=== PATIENT | female | born 1995 | race Caucasian/White ===

== ENCOUNTER 2022-08-27 22:20 | Inpatient (IN) | payer MEDICAID, OTHER ==
[~2022-08-27] VITALS: Ht 154.9 cm; Wt 99.9 kg
[2022-08-27 23:14] LABS: BASOPHILS % (AUTO) 0.3 % (0.0-2.0); EOSINOPHILS % (AUTO) 1.9 % (1.0-6.0); HEMATOCRIT 36.2 % (36-46); HEMOGLOBIN 11.4 g/dL (12.0-16.0); LYMPHOCYTES # (AUTO) 2.8 K/uL (1.0-4.8); LYMPHOCYTES % (AUTO) 25.5 % (22.0-44.0); MEAN CORPUSCULAR HEMOGLOBIN 24.9 pg (26.0-34.0); MEAN CORPUSCULAR HGB CONC 31.6 G/dL (31.0-37.0); MEAN CORPUSCULAR VOLUME 79 fL (80-100); MONOCYTES # (AUTO) 1.2 K/uL (0.1-1.0); MONOCYTES % (AUTO) 10.8 % (2.0-9.0); NEUTROPHILS # (AUTO) 6.6 K/uL (1.8-7.7); NEUTROPHILS % (AUTO) 61.5 % (40.0-70.0); PLATELET COUNT (AUTO) 336 K/uL (150-450); RED BLOOD CELL COUNT(AUTO) 4.59 MIL/uL (4.00-5.20)
[2022-08-27 23:23] LABS: ANION GAP 9 mmol/L (8-16); CALCIUM, TOTAL 9.1 mg/dL (8.8-10.5); CARBON DIOXIDE 27 mmol/L (22-29); CHLORIDE 104 mmol/L (98-107); CREATININE 0.68 mg/dL (0.60-1.30); GLOMERULAR FILTR. RATE CALC > 60 mL/min (>60); GLUCOSE,RANDOM 121 mg/dL (70-110); POTASSIUM 3.6 mmol/L (3.5-5.1); SODIUM SERUM 140 mmol/L (136-145); UREA NITROGEN, BLOOD 7 mg/dL (7-18)
[2022-08-27 23:28] LABS: ALANINE AMINOTRANSFERASE 45 U/L (12-78); ALBUMIN 3.6 g/dL (3.4-5.0); ALKALINE PHOSPHATASE 91 U/L (46-116); ASPARTATE AMINOTRANSFERASE 32 U/L (15-37); BILIRUBIN,TOTAL 0.1 mg/dL (0.1-1.0); TOTAL PROTEIN, SERUM 8.1 g/dL (6.4-8.2)
[2022-08-27 23:30] LABS: COVID AG,FIA SOURCE NASAL SWAB
[2022-08-28 00:55] LABS: HCG,QUANTITATIVE < 1 mIU/mL (0-6)
[2022-08-28] MEDS ORDERED: ZOLPIDEM TARTRATE 10 MG TABLET PO PRN (06:15)
[2022-08-28 07:07] VITALS: BP 108/60
[2022-08-28] MEDS ORDERED: LOPERAMIDE HCL 2 MG CAPSULE PO PRN (08:15)
[2022-08-28] MEDS ORDERED: ONDANSETRON HCL 4 MG TABLET PO PRN (08:15)
[2022-08-28] MEDS ORDERED: ALBUTEROL SULFATE HFA 90 MCG/PUFF 8 GM INHALER IH PRN (08:15)
[2022-08-28] MEDS ORDERED: IBUPROFEN 400 MG TABLET PO PRN (08:15)
[2022-08-28] MEDS ORDERED: CloNIDine HCL 0.1 MG TABLET PO PRN (08:15)
[2022-08-28] MEDS ORDERED: GuaiFENesin/D-METHORPHAN [SUGAR-FREE] 200-20MG/10 ML SYRUP UDCUP PO PRN (08:15)
[2022-08-28] MEDS ORDERED: MAGNESIUM HYDROXIDE SUSPENSION 30 ML UDCUP PO PRN (08:15)
[2022-08-28] MEDS ORDERED: PETROLATUM,WHITE 28 GM JELLY TP PRN (08:15)
[2022-08-28] MEDS ORDERED: DOCUSATE SODIUM 100 MG CAPSULE PO PRN (08:15)
[2022-08-28] MEDS ORDERED: MAG HYDROX/AL HYDROX/SIMETH ES 30 ML SUSPENSION UDCUP PO PRN (08:15)
[2022-08-28] MEDS ORDERED: ACETAMINOPHEN 325 MG TABLET PO PRN (08:15)
[2022-08-28 08:30] VITALS: BP 112/60
[2022-08-28] MEDS: BACITRACIN 28 GM OINTMENT TP SCH ×2 (09:20→17:07)
[2022-08-28] MEDS: FLUoxetine HCL 20 MG CAPSULE PO SCH (14:09)
[2022-08-28 20:03] VITALS: BP 119/60
[2022-08-28] MEDS: OLANZapine 10 MG TABLET PO SCH (20:36)
[2022-08-29 08:00] VITALS: BP 113/60
[2022-08-29 08:28] LABS: CHOL/HDL RATIO 5.6 (3.9-5.7); FREE T4 (FREE THYROXINE) 0.59 ng/dL (0.76-1.46); THYROID STIMULATING HORMONE 1.82 uIU/mL (0.36-3.74)
[2022-08-29] MEDS: FLUoxetine HCL 20 MG CAPSULE PO SCH (08:50)
[2022-08-29] MEDS: BACITRACIN 28 GM OINTMENT TP SCH ×2 (08:50→16:38)
[2022-08-29] MEDS: OLANZapine 10 MG TABLET PO SCH (08:50)
[2022-08-29] MEDS ORDERED: PALIPERIDONE PALMITATE 234 MG/1.5 ML SYRINGE IM ONE (10:00)
[2022-08-29] MEDS: CloZAPine 25 MG TABLET PO SCH (10:18)
[2022-08-29] MEDS: DIVALPROEX SODIUM 500 MG DR TABLET PO SCH ×2 (10:18→16:38)
[2022-08-29] MEDS: SERTRALINE HCL 100 MG TABLET PO SCH ×2 (10:18→16:38)
[2022-08-29] MEDS: HALOPERIDOL 5 MG TABLET PO PRN (12:56)
[2022-08-29] MEDS: LORazepam 2 MG TABLET PO PRN ×2 (12:56→19:46)
[2022-08-29 20:07] VITALS: BP 116/73
[2022-08-29] MEDS: LITHIUM CARBONATE 600 MG CAPSULE PO SCH (20:36)
[2022-08-29] MEDS: CloZAPine 100 MG TABLET PO SCH (20:36)
[2022-08-30] MEDS: SERTRALINE HCL 100 MG TABLET PO SCH ×2 (08:42→16:40)
[2022-08-30] MEDS: BACITRACIN 28 GM OINTMENT TP SCH ×2 (08:42→16:41)
[2022-08-30] MEDS: FLUoxetine HCL 20 MG CAPSULE PO SCH (08:42)
[2022-08-30] MEDS: DIVALPROEX SODIUM 500 MG DR TABLET PO SCH ×2 (08:42→16:40)
[2022-08-30] MEDS: CloZAPine 25 MG TABLET PO SCH (08:42)
[2022-08-30] MEDS: CloZAPine 100 MG TABLET PO SCH (21:00)
[2022-08-30] MEDS: LITHIUM CARBONATE 600 MG CAPSULE PO SCH (21:00)
[2022-08-31 08:21] VITALS: BP 109/61
[2022-08-31] MEDS: CloZAPine 25 MG TABLET PO SCH (08:31)
[2022-08-31] MEDS: SERTRALINE HCL 100 MG TABLET PO SCH ×2 (08:32→16:39)
[2022-08-31] MEDS: DIVALPROEX SODIUM 500 MG DR TABLET PO SCH ×2 (08:32→16:39)
[2022-08-31] MEDS: FLUoxetine HCL 20 MG CAPSULE PO SCH (08:32)
[2022-08-31] MEDS: BACITRACIN 28 GM OINTMENT TP SCH ×2 (08:42→16:39)
[2022-08-31] MEDS: LORazepam 2 MG TABLET PO PRN (15:50)
[2022-08-31] MEDS: HALOPERIDOL 5 MG TABLET PO PRN (15:50)
[2022-08-31 20:03] VITALS: BP 110/60
[2022-08-31] MEDS: LITHIUM CARBONATE 600 MG CAPSULE PO SCH (20:07)
[2022-08-31] MEDS: CloZAPine 100 MG TABLET PO SCH (20:07)
[2022-09-01 08:19] VITALS: BP 119/76
[2022-09-01] MEDS: DIVALPROEX SODIUM 500 MG DR TABLET PO SCH ×2 (08:22→16:15)
[2022-09-01] MEDS: CloZAPine 25 MG TABLET PO SCH (08:22)
[2022-09-01] MEDS: SERTRALINE HCL 100 MG TABLET PO SCH ×2 (08:22→16:15)
[2022-09-01] MEDS: BACITRACIN 28 GM OINTMENT TP SCH ×2 (08:22→16:15)
[2022-09-01] MEDS: FLUoxetine HCL 20 MG CAPSULE PO SCH (08:22)
[2022-09-01] MEDS: LORazepam 2 MG TABLET PO PRN (16:15)
[2022-09-01 20:12] VITALS: BP 129/88
[2022-09-01] MEDS: LITHIUM CARBONATE 600 MG CAPSULE PO SCH (20:14)
[2022-09-01] MEDS: CloZAPine 100 MG TABLET PO SCH (20:14)
[2022-09-02] MEDS: BACITRACIN 28 GM OINTMENT TP SCH ×2 (08:19→17:23)
[2022-09-02] MEDS: SERTRALINE HCL 100 MG TABLET PO SCH ×2 (08:19→17:23)
[2022-09-02] MEDS: DIVALPROEX SODIUM 500 MG DR TABLET PO SCH ×2 (08:19→17:23)
[2022-09-02] MEDS: CloZAPine 25 MG TABLET PO SCH (08:19)
[2022-09-02] MEDS: FLUoxetine HCL 20 MG CAPSULE PO SCH (08:19)
[2022-09-02 08:27] VITALS: BP 129/86
[2022-09-02 09:46] LABS: GLUCOMETER DEV NAME(LOC) POC.BV
[2022-09-02 20:11] VITALS: BP 117/68
[2022-09-02] MEDS: CloZAPine 100 MG TABLET PO SCH (20:21)
[2022-09-02] MEDS: LITHIUM CARBONATE 600 MG CAPSULE PO SCH (20:21)
[2022-09-03 08:18] VITALS: BP 118/83
[2022-09-03] MEDS: BACITRACIN 28 GM OINTMENT TP SCH ×2 (08:27→16:46)
[2022-09-03] MEDS: CloZAPine 25 MG TABLET PO SCH (08:27)
[2022-09-03] MEDS: FLUoxetine HCL 20 MG CAPSULE PO SCH (08:27)
[2022-09-03] MEDS: SERTRALINE HCL 100 MG TABLET PO SCH ×2 (08:27→16:45)
[2022-09-03] MEDS: DIVALPROEX SODIUM 500 MG DR TABLET PO SCH ×2 (08:27→16:45)
[2022-09-03] MEDS: LORazepam 2 MG TABLET PO PRN ×2 (13:18→19:29)
[2022-09-03] MEDS: HALOPERIDOL 5 MG TABLET PO PRN (19:29)
[2022-09-03 20:07] VITALS: BP 115/71
[2022-09-03] MEDS: LITHIUM CARBONATE 600 MG CAPSULE PO SCH (20:39)
[2022-09-03] MEDS: CloZAPine 100 MG TABLET PO SCH (20:39)
[2022-09-04 07:38] LABS: BASOPHILS % (AUTO) 0.4 % (0.0-2.0); EOSINOPHILS % (AUTO) 2.9 % (1.0-6.0); HEMATOCRIT 36.2 % (36-46); HEMOGLOBIN 11.5 g/dL (12.0-16.0); LYMPHOCYTES # (AUTO) 2.6 K/uL (1.0-4.8); LYMPHOCYTES % (AUTO) 28.3 % (22.0-44.0); MEAN CORPUSCULAR HEMOGLOBIN 24.9 pg (26.0-34.0); MEAN CORPUSCULAR HGB CONC 31.8 G/dL (31.0-37.0); MEAN CORPUSCULAR VOLUME 78 fL (80-100); MONOCYTES # (AUTO) 0.8 K/uL (0.1-1.0); MONOCYTES % (AUTO) 8.7 % (2.0-9.0); NEUTROPHILS # (AUTO) 5.5 K/uL (1.8-7.7); NEUTROPHILS % (AUTO) 59.7 % (40.0-70.0); PLATELET COUNT (AUTO) 300 K/uL (150-450); RED BLOOD CELL COUNT(AUTO) 4.62 MIL/uL (4.00-5.20); RED CELL DISTRIBUTION WIDTH 16.1 % (11.5-14.5)
[2022-09-04 08:11] VITALS: BP 130/73
[2022-09-04] MEDS: BACITRACIN 28 GM OINTMENT TP SCH ×2 (08:41→16:50)
[2022-09-04] MEDS: FLUoxetine HCL 20 MG CAPSULE PO SCH (08:42)
[2022-09-04] MEDS: SERTRALINE HCL 100 MG TABLET PO SCH ×2 (08:42→16:50)
[2022-09-04] MEDS: DIVALPROEX SODIUM 500 MG DR TABLET PO SCH ×2 (08:42→16:50)
[2022-09-04] MEDS: CloZAPine 25 MG TABLET PO SCH (08:43)
[2022-09-04 20:03] VITALS: BP 115/68
[2022-09-04] MEDS: CloZAPine 100 MG TABLET PO SCH (20:08)
[2022-09-04] MEDS: LITHIUM CARBONATE 600 MG CAPSULE PO SCH (20:08)
[2022-09-05 08:27] VITALS: BP 129/76
[2022-09-05] MEDS: SERTRALINE HCL 100 MG TABLET PO SCH ×2 (08:27→16:48)
[2022-09-05] MEDS: FLUoxetine HCL 20 MG CAPSULE PO SCH (08:27)
[2022-09-05] MEDS: CloZAPine 25 MG TABLET PO SCH (08:27)
[2022-09-05] MEDS: BACITRACIN 28 GM OINTMENT TP SCH ×2 (08:28→16:51)
[2022-09-05] MEDS: DIVALPROEX SODIUM 500 MG DR TABLET PO SCH ×2 (09:32→16:40)
[2022-09-05] MEDS: LORazepam 2 MG TABLET PO PRN (16:55)
[2022-09-05] MEDS: CloZAPine 100 MG TABLET PO SCH (20:01)
[2022-09-05] MEDS: LITHIUM CARBONATE 600 MG CAPSULE PO SCH (20:06)
[2022-09-05 20:15] VITALS: BP 127/77
[2022-09-06] MEDS: DIVALPROEX SODIUM 500 MG DR TABLET PO SCH ×2 (08:25→16:42)
[2022-09-06] MEDS: FLUoxetine HCL 20 MG CAPSULE PO SCH (08:26)
[2022-09-06] MEDS: CloZAPine 25 MG TABLET PO SCH (08:26)
[2022-09-06] MEDS: BACITRACIN 28 GM OINTMENT TP SCH ×2 (08:48→16:42)
[2022-09-06] MEDS: SERTRALINE HCL 100 MG TABLET PO SCH ×2 (09:15→16:42)
[2022-09-06 09:26] VITALS: BP 106/67
[2022-09-06] MEDS: LORazepam 2 MG TABLET PO PRN (14:42)
[2022-09-06] MEDS: HALOPERIDOL 5 MG TABLET PO PRN (14:42)
[2022-09-06 20:03] VITALS: BP 112/63
[2022-09-06] MEDS: LITHIUM CARBONATE 600 MG CAPSULE PO SCH (20:20)
[2022-09-06] MEDS: CloZAPine 100 MG TABLET PO SCH (20:20)
[2022-09-07] MEDS: CloZAPine 25 MG TABLET PO SCH (08:42)
[2022-09-07] MEDS: SERTRALINE HCL 100 MG TABLET PO SCH ×2 (08:42→16:24)
[2022-09-07] MEDS: DIVALPROEX SODIUM 500 MG DR TABLET PO SCH ×2 (08:43→16:20)
[2022-09-07] MEDS: FLUoxetine HCL 20 MG CAPSULE PO SCH (08:43)
[2022-09-07 20:00] VITALS: BP 122/84
[2022-09-07] MEDS: LITHIUM CARBONATE 600 MG CAPSULE PO SCH (20:22)
[2022-09-07] MEDS: CloZAPine 100 MG TABLET PO SCH (20:23)
[2022-09-08] MEDS: DIVALPROEX SODIUM 500 MG DR TABLET PO SCH ×2 (08:44→16:02)
[2022-09-08] MEDS: CloZAPine 25 MG TABLET PO SCH (08:45)
[2022-09-08] MEDS: SERTRALINE HCL 100 MG TABLET PO SCH ×2 (08:45→16:02)
[2022-09-08] MEDS: FLUoxetine HCL 20 MG CAPSULE PO SCH (08:45)
[2022-09-08] MEDS: CloZAPine 100 MG TABLET PO SCH (20:18)
[2022-09-08] MEDS: LITHIUM CARBONATE 600 MG CAPSULE PO SCH (20:18)
[2022-09-09 08:39] VITALS: BP 106/64
[2022-09-09] MEDS: CloZAPine 25 MG TABLET PO SCH (08:40)
[2022-09-09] MEDS: DIVALPROEX SODIUM 500 MG DR TABLET PO SCH (08:40)
[2022-09-09] MEDS: FLUoxetine HCL 20 MG CAPSULE PO SCH (08:40)
[2022-09-09] MEDS: SERTRALINE HCL 100 MG TABLET PO SCH (08:41)
[2022-09-09 08:46] LABS: GLUCOMETER DEV NAME(LOC) POC.BV
[2022-09-09] MEDS ORDERED: DIVA-112 PO (12:46)
[2022-09-09] MEDS ORDERED: LITH600C5 PO (12:47)
[2022-09-09] MEDS ORDERED: CLOZ100T68 PO (12:47)
[2022-09-09] MEDS ORDERED: SERT-162 PO (12:47)
[2022-09-09] MEDS ORDERED: CLOZ25TA55 PO (12:47)
[2022-09-09] MEDS ORDERED: FLUO20CA36 PO (12:48)
[2022-09-26] MEDS ORDERED: PALIPERIDONE PALMITATE 234 MG/1.5 ML SYRINGE IM SCH (09:00)
== END 2022-09-09 13:32 | disposition home or self-care (01) | DRG 750 ==
LOC: EMS 22:26 → B3A 08-28 03:00
PROVIDERS: ADMIT Psychiatry & Neurology Child & Adolescent Psychiatry; ATTEND Psychiatry & Neurology Child & Adolescent Psychiatry
DX: F25.1 Schizoaffective disorder, depressive type (principal); R45.851 Suicidal ideations; E11.9 Type 2 diabetes mellitus without complications; F32.A Depression, unspecified; E66.01 Morbid (severe) obesity due to excess calories; D64.9 Anemia, unspecified; F25.9 Schizoaffective disorder, unspecified; K21.9 Gastro-esophageal reflux disease without esophagitis; F79 Unspecified intellectual disabilities; Z20.822 Contact with and (suspected) exposure to COVID-19; Z68.41 Body mass index [BMI] 40.0-44.9, adult
CPT/HCPCS: 80053; 80061; 80164; 80178; 83036; 84439; 84443; 84702; 85025; 99285; G0480

== ENCOUNTER 2023-01-16 22:30 | Inpatient (IN) | payer MEDICAID ==
[~2023-01-16] VITALS: Ht 175.3 cm; Wt 107.5 kg
[~2023-01-16 22:30] MED LIST: CLOZ100T68 PO; CLOZ25TA52 PO; DIVA-112 PO; FLUO20CA36 PO; LITH600C5 PO; SERT-162 PO
[2023-01-17 00:19] LABS: COVID AG,FIA SOURCE NASOPHARYNGEAL
[2023-01-17 00:21] LABS: BASOPHILS % (AUTO) 0.3 % (0.0-2.0); HEMATOCRIT 33.7 % (36-46); HEMOGLOBIN 10.7 g/dL (12.0-16.0); LYMPHOCYTES # (AUTO) 2.6 K/uL (1.0-4.8); LYMPHOCYTES % (AUTO) 30.7 % (22.0-44.0); MEAN CORPUSCULAR HGB CONC 31.7 G/dL (31.0-37.0); MEAN CORPUSCULAR VOLUME 79 fL (80-100); MONOCYTES # (AUTO) 0.8 K/uL (0.1-1.0); MONOCYTES % (AUTO) 9.4 % (2.0-9.0); NEUTROPHILS # (AUTO) 4.8 K/uL (1.8-7.7); NEUTROPHILS % (AUTO) 56.6 % (40.0-70.0); PLATELET COUNT (AUTO) 245 K/uL (150-450); RED BLOOD CELL COUNT(AUTO) 4.26 MIL/uL (4.00-5.20); RED CELL DISTRIBUTION WIDTH 17.7 % (11.5-14.5); WHITE BLOOD COUNT (AUTO) 8.5 K/uL (4.5-11.0)
[2023-01-17 00:37] LABS: ANION GAP 9 mmol/L (8-16); CALCIUM, TOTAL 8.8 mg/dL (8.8-10.5); CARBON DIOXIDE 25 mmol/L (22-29); CHLORIDE 103 mmol/L (98-107); CREATININE 0.63 mg/dL (0.60-1.30); GLOMERULAR FILTR. RATE CALC > 60 mL/min (>60); GLUCOSE,RANDOM 97 mg/dL (70-110); POTASSIUM 3.6 mmol/L (3.5-5.1); SODIUM SERUM 137 mmol/L (136-145); UREA NITROGEN, BLOOD 5 mg/dL (7-18)
[2023-01-17 00:38] LABS: LITHIUM 0.72 mmol/L (0.60-1.20)
[2023-01-17 00:43] LABS: ALANINE AMINOTRANSFERASE 51 U/L (12-78); ALBUMIN 3.2 g/dL (3.4-5.0); ALKALINE PHOSPHATASE 92 U/L (46-116); ASPARTATE AMINOTRANSFERASE 66 U/L (15-37); BILIRUBIN,TOTAL 0.2 mg/dL (0.1-1.0); TOTAL PROTEIN, SERUM 7.6 g/dL (6.4-8.2)
[2023-01-17 00:44] LABS: VALPROIC ACID 79 mcg/mL (50-100)
[2023-01-17 00:45] LABS: ALCOHOL, BLOOD (SERUM) < 3 mg/dL (0-10)
[2023-01-17 01:03] LABS: SARS-COV2 (COVID) ANTIGEN,FIA Negative (Negative)
[2023-01-17] MEDS ORDERED: ZOLPIDEM TARTRATE 10 MG TABLET PO PRN (01:45)
[2023-01-17 10:45] LABS: GLUCOMETER DEV NAME(LOC) ER.6; GLUCOSE,POINT OF CARE 81 MG/DL (70-110)
[2023-01-17] MEDS: HALOPERIDOL 5 MG TABLET PO PRN (12:06)
[2023-01-17] MEDS: LORazepam 2 MG TABLET PO PRN (12:06)
[2023-01-17 13:02] VITALS: BP 126/75; PULSE 83; RESP 18; TEMP 98.1; O2SAT 97
[2023-01-17] MEDS ORDERED: PNEUMOCOCCAL VACCINE POLYVALENT 0.5 ML SYRINGE [PPSV23] IM. ONE (13:15)
[2023-01-17] MEDS ORDERED: CloNIDine HCL 0.1 MG TABLET PO PRN (13:45)
[2023-01-17] MEDS ORDERED: NICOTINE 14 MG/24 HOUR PATCH TD PRN (13:45)
[2023-01-17] MEDS ORDERED: LOPERAMIDE HCL 2 MG CAPSULE PO PRN (13:45)
[2023-01-17] MEDS ORDERED: ALBUTEROL SULFATE HFA 90 MCG/PUFF 8 GM INHALER IH PRN (13:45)
[2023-01-17] MEDS ORDERED: GuaiFENesin/D-METHORPHAN [SUGAR-FREE] 200-20MG/10 ML SYRUP UDCUP PO PRN (13:45)
[2023-01-17] MEDS ORDERED: MAG HYDROX/AL HYDROX/SIMETH ES 30 ML SUSPENSION UDCUP PO PRN (13:45)
[2023-01-17] MEDS ORDERED: MAGNESIUM HYDROXIDE SUSPENSION 30 ML UDCUP PO PRN (13:45)
[2023-01-17] MEDS ORDERED: DOCUSATE SODIUM 100 MG CAPSULE PO PRN (13:45)
[2023-01-17] MEDS ORDERED: ONDANSETRON HCL 4 MG TABLET PO PRN (13:45)
[2023-01-17] MEDS ORDERED: PETROLATUM,WHITE 28 GM JELLY TP PRN (13:45)
[2023-01-17 20:08] VITALS: BP 110/60; PULSE 91; RESP 19; TEMP 97.7; O2SAT 94
[2023-01-17] MEDS: CloZAPine 25 MG TABLET PO SCH (21:00)
[2023-01-17] MEDS: BENZTROPINE MESYLATE 2 MG TABLET PO SCH (21:00)
[2023-01-17] MEDS: ESCITALOPRAM OXALATE 10 MG TABLET PO SCH ×2 (21:00→21:04)
[2023-01-17] MEDS: LURASIDONE HCL 80 MG TABLET PO SCH ×2 (21:00→21:04)
[2023-01-17] MEDS: DIVALPROEX SODIUM 500 MG ER TABLET PO SCH (21:00)
[2023-01-17] MEDS: CloZAPine 100 MG TABLET PO SCH (21:00)
[2023-01-17] MEDS: LITHIUM CARBONATE 600 MG CAPSULE PO SCH (21:00)
[2023-01-17] MEDS: LamoTRIgine 100 MG TABLET PO SCH (21:00)
[2023-01-18] MEDS: LamoTRIgine 100 MG TABLET PO SCH ×2 (08:00→20:45)
[2023-01-18] MEDS: CloZAPine 25 MG TABLET PO SCH ×2 (08:00→20:45)
[2023-01-18 08:50] LABS: BASOPHILS % (AUTO) 0.3 % (0.0-2.0); EOSINOPHILS % (AUTO) 3.4 % (1.0-6.0); HEMATOCRIT 36.9 % (36-46); HEMOGLOBIN 11.5 g/dL (12.0-16.0); LYMPHOCYTES % (AUTO) 29.6 % (22.0-44.0); MEAN CORPUSCULAR HEMOGLOBIN 24.7 pg (26.0-34.0); MEAN CORPUSCULAR HGB CONC 31.2 G/dL (31.0-37.0); MEAN CORPUSCULAR VOLUME 79 fL (80-100); MONOCYTES # (AUTO) 0.3 K/uL (0.1-1.0); MONOCYTES % (AUTO) 4.1 % (2.0-9.0); NEUTROPHILS # (AUTO) 4.3 K/uL (1.8-7.7); NEUTROPHILS % (AUTO) 62.6 % (40.0-70.0); PLATELET COUNT (AUTO) 273 K/uL (150-450); RED BLOOD CELL COUNT(AUTO) 4.65 MIL/uL (4.00-5.20); RED CELL DISTRIBUTION WIDTH 17.6 % (11.5-14.5); WHITE BLOOD COUNT (AUTO) 6.8 K/uL (4.5-11.0)
[2023-01-18 09:00] VITALS: BP 114/66; PULSE 96; RESP 16; TEMP 97.5; O2SAT 96
[2023-01-18 09:03] LABS: HEMOGLOBIN A1C 5.9 % (3.8-5.6)
[2023-01-18 09:27] LABS: CHOL/HDL RATIO 6.5 (3.9-5.7); THYROID STIMULATING HORMONE 5.98 uIU/mL (0.36-3.74)
[2023-01-18] MEDS: HALOPERIDOL 5 MG TABLET PO PRN (16:14)
[2023-01-18] MEDS: LORazepam 2 MG TABLET PO PRN (16:14)
[2023-01-18] MEDS: DIVALPROEX SODIUM 500 MG ER TABLET PO SCH (20:45)
[2023-01-18] MEDS: LURASIDONE HCL 80 MG TABLET PO SCH (20:45)
[2023-01-18] MEDS: ESCITALOPRAM OXALATE 10 MG TABLET PO SCH (20:45)
[2023-01-18] MEDS: CloZAPine 100 MG TABLET PO SCH (20:45)
[2023-01-18] MEDS: LITHIUM CARBONATE 600 MG CAPSULE PO SCH (20:45)
[2023-01-18] MEDS: BENZTROPINE MESYLATE 2 MG TABLET PO SCH (21:06)
[2023-01-18 21:11] VITALS: BP 120/82; PULSE 98; RESP 18; TEMP 97.6; O2SAT 94
[2023-01-19 08:10] VITALS: BP 106/60; PULSE 85; RESP 18; RESP 20; TEMP 94; TEMP 98; O2SAT 94; O2SAT 97
[2023-01-19] MEDS: LamoTRIgine 100 MG TABLET PO SCH ×2 (08:12→20:11)
[2023-01-19] MEDS: LORazepam 2 MG TABLET PO PRN (08:12)
[2023-01-19] MEDS: CloZAPine 25 MG TABLET PO SCH ×2 (08:12→20:10)
[2023-01-19] MEDS: HALOPERIDOL 5 MG TABLET PO PRN (08:12)
[2023-01-19] MEDS: LURASIDONE HCL 80 MG TABLET PO SCH (20:10)
[2023-01-19] MEDS: LITHIUM CARBONATE 600 MG CAPSULE PO SCH (20:10)
[2023-01-19] MEDS: CloZAPine 100 MG TABLET PO SCH (20:10)
[2023-01-19] MEDS: ESCITALOPRAM OXALATE 10 MG TABLET PO SCH (20:10)
[2023-01-19] MEDS: DIVALPROEX SODIUM 500 MG ER TABLET PO SCH (20:10)
[2023-01-19] MEDS: BENZTROPINE MESYLATE 2 MG TABLET PO SCH (21:18)
[2023-01-19 21:34] VITALS: RESP 17
[2023-01-20 08:17] VITALS: BP 129/83; PULSE 84; RESP 18; TEMP 98.6; O2SAT 97
[2023-01-20] MEDS: CloZAPine 25 MG TABLET PO SCH ×2 (09:03→20:03)
[2023-01-20] MEDS: LamoTRIgine 100 MG TABLET PO SCH ×2 (09:03→20:04)
[2023-01-20] MEDS: LORazepam 2 MG TABLET PO PRN (09:04)
[2023-01-20] MEDS: CloZAPine 100 MG TABLET PO SCH (20:04)
[2023-01-20] MEDS: BENZTROPINE MESYLATE 2 MG TABLET PO SCH (20:04)
[2023-01-20] MEDS: ESCITALOPRAM OXALATE 10 MG TABLET PO SCH (20:04)
[2023-01-20] MEDS: LURASIDONE HCL 80 MG TABLET PO SCH (20:04)
[2023-01-20] MEDS: LITHIUM CARBONATE 600 MG CAPSULE PO SCH (20:04)
[2023-01-20] MEDS: DIVALPROEX SODIUM 500 MG ER TABLET PO SCH (20:04)
[2023-01-20 20:32] VITALS: RESP 19; TEMP 98
[2023-01-21 08:06] VITALS: BP 107/67; PULSE 100; RESP 16; TEMP 97.1; O2SAT 98
[2023-01-21] MEDS: LamoTRIgine 100 MG TABLET PO SCH ×2 (09:02→20:21)
[2023-01-21] MEDS: CloZAPine 25 MG TABLET PO SCH ×2 (09:02→20:20)
[2023-01-21] MEDS: ACETAMINOPHEN 325 MG TABLET PO PRN (18:14)
[2023-01-21] MEDS: LORazepam 2 MG TABLET PO PRN (18:14)
[2023-01-21] MEDS: HALOPERIDOL 5 MG TABLET PO PRN (18:14)
[2023-01-21 20:00] VITALS: BP 113/72; PULSE 100; RESP 18; TEMP 98; O2SAT 97
[2023-01-21] MEDS: ESCITALOPRAM OXALATE 10 MG TABLET PO SCH (20:21)
[2023-01-21] MEDS: DIVALPROEX SODIUM 500 MG ER TABLET PO SCH (20:21)
[2023-01-21] MEDS: CloZAPine 100 MG TABLET PO SCH (20:21)
[2023-01-21] MEDS: LURASIDONE HCL 80 MG TABLET PO SCH (20:21)
[2023-01-21] MEDS: LITHIUM CARBONATE 600 MG CAPSULE PO SCH (20:21)
[2023-01-21] MEDS: BENZTROPINE MESYLATE 2 MG TABLET PO SCH (20:22)
[2023-01-21] MEDS: IBUPROFEN 400 MG TABLET PO PRN (21:23)
[2023-01-21] MEDS: BENZOCAINE 10% 7 GM GEL TP PRN (21:23)
[2023-01-22 08:10] VITALS: RESP 18
[2023-01-22] MEDS: HALOPERIDOL 5 MG TABLET PO PRN (08:31)
[2023-01-22] MEDS: LamoTRIgine 100 MG TABLET PO SCH ×2 (08:32→20:14)
[2023-01-22] MEDS: LORazepam 2 MG TABLET PO PRN ×2 (08:32→20:14)
[2023-01-22] MEDS: CloZAPine 25 MG TABLET PO SCH ×2 (08:32→20:14)
[2023-01-22] MEDS: LURASIDONE HCL 40 MG TABLET PO SCH (17:09)
[2023-01-22] MEDS: BENZOCAINE 10% 7 GM GEL TP PRN (17:15)
[2023-01-22] MEDS: ACETAMINOPHEN 325 MG TABLET PO PRN (17:15)
[2023-01-22 18:47] VITALS: RESP 18
[2023-01-22] MEDS: IBUPROFEN 400 MG TABLET PO PRN (18:47)
[2023-01-22 19:47] VITALS: RESP 17
[2023-01-22] MEDS: LITHIUM CARBONATE 600 MG CAPSULE PO SCH (20:14)
[2023-01-22] MEDS: LURASIDONE HCL 80 MG TABLET PO SCH (20:14)
[2023-01-22] MEDS: DIVALPROEX SODIUM 500 MG ER TABLET PO SCH (20:14)
[2023-01-22] MEDS: ESCITALOPRAM OXALATE 20 MG TABLET PO SCH (20:14)
[2023-01-22] MEDS: CloZAPine 100 MG TABLET PO SCH (20:14)
[2023-01-22] MEDS: BENZTROPINE MESYLATE 2 MG TABLET PO SCH (21:12)
[2023-01-22 21:45] VITALS: RESP 18; TEMP 98
[2023-01-23 07:10] VITALS: BP 131/71; PULSE 89; RESP 17; TEMP 97.2; O2SAT 98
[2023-01-23] MEDS: HALOPERIDOL 5 MG TABLET PO PRN (08:18)
[2023-01-23] MEDS: LORazepam 2 MG TABLET PO PRN (08:18)
[2023-01-23] MEDS: LamoTRIgine 100 MG TABLET PO SCH ×2 (08:19→20:27)
[2023-01-23] MEDS: CloZAPine 25 MG TABLET PO SCH ×2 (08:19→20:27)
[2023-01-23 08:42] VITALS: RESP 18
[2023-01-23] MEDS: LURASIDONE HCL 40 MG TABLET PO SCH (16:44)
[2023-01-23 20:00] VITALS: BP 125/79; PULSE 94; RESP 18; TEMP 97.8; O2SAT 96
[2023-01-23] MEDS: ESCITALOPRAM OXALATE 20 MG TABLET PO SCH (20:27)
[2023-01-23] MEDS: LITHIUM CARBONATE 600 MG CAPSULE PO SCH (20:27)
[2023-01-23] MEDS: BENZTROPINE MESYLATE 2 MG TABLET PO SCH (20:27)
[2023-01-23] MEDS: DIVALPROEX SODIUM 500 MG ER TABLET PO SCH (20:27)
[2023-01-23] MEDS: CloZAPine 100 MG TABLET PO SCH (20:28)
[2023-01-23] MEDS: LURASIDONE HCL 80 MG TABLET PO SCH (22:05)
[2023-01-24 07:21] LABS: BASOPHILS % (AUTO) 0.3 % (0.0-2.0); EOSINOPHILS % (AUTO) 3.2 % (1.0-6.0); HEMATOCRIT 36.2 % (36-46); HEMOGLOBIN 11.4 g/dL (12.0-16.0); LYMPHOCYTES # (AUTO) 2.7 K/uL (1.0-4.8); LYMPHOCYTES % (AUTO) 28.9 % (22.0-44.0); MEAN CORPUSCULAR HEMOGLOBIN 25.1 pg (26.0-34.0); MEAN CORPUSCULAR HGB CONC 31.6 G/dL (31.0-37.0); MEAN CORPUSCULAR VOLUME 79 fL (80-100); MONOCYTES # (AUTO) 0.8 K/uL (0.1-1.0); MONOCYTES % (AUTO) 8.3 % (2.0-9.0); NEUTROPHILS # (AUTO) 5.6 K/uL (1.8-7.7); NEUTROPHILS % (AUTO) 59.3 % (40.0-70.0); PLATELET COUNT (AUTO) 280 K/uL (150-450); RED BLOOD CELL COUNT(AUTO) 4.56 MIL/uL (4.00-5.20); RED CELL DISTRIBUTION WIDTH 17.8 % (11.5-14.5); WHITE BLOOD COUNT (AUTO) 9.4 K/uL (4.5-11.0)
[2023-01-24] MEDS: LamoTRIgine 100 MG TABLET PO SCH ×2 (08:14→21:36)
[2023-01-24] MEDS: CloZAPine 25 MG TABLET PO SCH ×2 (08:14→21:36)
[2023-01-24 09:00] VITALS: BP 105/60; PULSE 81; RESP 18; TEMP 98.3; O2SAT 94
[2023-01-24] MEDS: LURASIDONE HCL 40 MG TABLET PO SCH (16:22)
[2023-01-24 20:24] VITALS: BP 100/68; PULSE 100; RESP 16; TEMP 97.6; O2SAT 95
[2023-01-24] MEDS: LURASIDONE HCL 80 MG TABLET PO SCH (21:36)
[2023-01-24] MEDS: BENZTROPINE MESYLATE 2 MG TABLET PO SCH (21:36)
[2023-01-24] MEDS: CloZAPine 100 MG TABLET PO SCH (21:36)
[2023-01-24] MEDS: LITHIUM CARBONATE 600 MG CAPSULE PO SCH (21:36)
[2023-01-24] MEDS: ESCITALOPRAM OXALATE 20 MG TABLET PO SCH (21:37)
[2023-01-24] MEDS: DIVALPROEX SODIUM 500 MG ER TABLET PO SCH (21:37)
[2023-01-25 08:23] VITALS: BP 113/72; PULSE 87; RESP 18; TEMP 98; O2SAT 97
[2023-01-25] MEDS: CloZAPine 25 MG TABLET PO SCH ×2 (08:32→20:32)
[2023-01-25] MEDS: HALOPERIDOL 5 MG TABLET PO PRN (08:32)
[2023-01-25] MEDS: LORazepam 2 MG TABLET PO PRN (08:32)
[2023-01-25] MEDS: LamoTRIgine 100 MG TABLET PO SCH ×2 (08:32→20:33)
[2023-01-25] MEDS: LURASIDONE HCL 40 MG TABLET PO SCH (16:44)
[2023-01-25 20:23] VITALS: BP 107/74; PULSE 82; RESP 18; TEMP 97.8; O2SAT 97
[2023-01-25] MEDS: LITHIUM CARBONATE 600 MG CAPSULE PO SCH (20:32)
[2023-01-25] MEDS: LURASIDONE HCL 80 MG TABLET PO SCH (20:32)
[2023-01-25] MEDS: BENZTROPINE MESYLATE 2 MG TABLET PO SCH (20:32)
[2023-01-25] MEDS: CloZAPine 100 MG TABLET PO SCH (20:33)
[2023-01-25] MEDS: DIVALPROEX SODIUM 500 MG ER TABLET PO SCH (20:33)
[2023-01-25] MEDS: ESCITALOPRAM OXALATE 20 MG TABLET PO SCH (20:36)
[2023-01-26 08:45] VITALS: BP 110/69; PULSE 80; RESP 18; TEMP 97.9; O2SAT 96
[2023-01-26] MEDS: LORazepam 2 MG TABLET PO PRN (09:16)
[2023-01-26] MEDS: CloZAPine 25 MG TABLET PO SCH ×2 (09:16→20:51)
[2023-01-26] MEDS: LamoTRIgine 100 MG TABLET PO SCH ×2 (09:16→20:51)
[2023-01-26] MEDS: LURASIDONE HCL 40 MG TABLET PO SCH (16:46)
[2023-01-26 20:15] VITALS: BP 116/75; PULSE 91; RESP 18; TEMP 97.9; O2SAT 96
[2023-01-26] MEDS: ESCITALOPRAM OXALATE 20 MG TABLET PO SCH (20:51)
[2023-01-26] MEDS: LITHIUM CARBONATE 600 MG CAPSULE PO SCH (20:51)
[2023-01-26] MEDS: CloZAPine 100 MG TABLET PO SCH (20:51)
[2023-01-26] MEDS: DIVALPROEX SODIUM 500 MG ER TABLET PO SCH (20:51)
[2023-01-26] MEDS: LURASIDONE HCL 80 MG TABLET PO SCH (20:51)
[2023-01-26] MEDS: BENZTROPINE MESYLATE 2 MG TABLET PO SCH (20:51)
[2023-01-27] MEDS: CloZAPine 25 MG TABLET PO SCH (08:11)
[2023-01-27] MEDS: LamoTRIgine 100 MG TABLET PO SCH (08:11)
[2023-01-27] MEDS ORDERED: LURA40TA2 PO (10:41)
[2023-01-27] MEDS ORDERED: BENZ2TAB71 PO (10:42)
[2023-01-27] MEDS ORDERED: CLOZ100T61 PO (10:42)
[2023-01-27] MEDS ORDERED: CLOZ25TA52 PO (10:42)
[2023-01-27] MEDS ORDERED: DIVA500T53 PO (10:43)
[2023-01-27] MEDS ORDERED: LAMO-24 PO (10:44)
[2023-01-27] MEDS ORDERED: LURA80TA2 PO (10:45)
[2023-01-27] MEDS ORDERED: ESCI20TA87 PO (10:45)
== END 2023-01-27 15:00 | disposition home or self-care (01) | DRG 750 ==
LOC: EMS 22:31 → B3A 01-17 09:33
PROVIDERS: ADMIT Psychiatry & Neurology Child & Adolescent Psychiatry; ATTEND Psychiatry & Neurology Child & Adolescent Psychiatry
DX: F25.1 Schizoaffective disorder, depressive type (principal); R45.851 Suicidal ideations; E11.9 Type 2 diabetes mellitus without complications; D64.9 Anemia, unspecified; E87.6 Hypokalemia; F17.200 Nicotine dependence, unspecified, uncomplicated; Z20.822 Contact with and (suspected) exposure to COVID-19; F19.10 Other psychoactive substance abuse, uncomplicated; G43.909 Migraine, unspecified, not intractable, without status migrainosus; I10 Essential (primary) hypertension; K21.9 Gastro-esophageal reflux disease without esophagitis; Z79.899 Other long term (current) drug therapy
CPT/HCPCS: 80053; 80061; 80164; 80178; 82962; 83036; 84443; 85025; 99285; G0480

== ENCOUNTER 2023-04-23 21:29 | Emergency (ER) | payer MEDICAID ==
[~2023-04-23] VITALS: Ht 162.6 cm; Wt 95.0 kg
[~2023-04-23 21:29] MED LIST changes: +BENZ2TAB71 PO; +CLOZ100T61 PO; -CLOZ100T68 PO; -DIVA-112 PO; +DIVA500T53 PO; +ESCI20TA87 PO; -FLUO20CA36 PO; +LAMO-24 PO; +LURA40TA2 PO; +LURA80TA2 PO; -SERT-162 PO
[2023-04-23 22:38] VITALS: TEMP 98.7
[2023-04-23 23:13] LABS: BASOPHILS % (AUTO) 0.3 % (0.0-2.0); EOSINOPHILS % (AUTO) 2.9 % (1.0-6.0); HEMATOCRIT 35.6 % (36-46); HEMOGLOBIN 11.5 g/dL (12.0-16.0); LYMPHOCYTES # (AUTO) 2.7 K/uL (1.0-4.8); LYMPHOCYTES % (AUTO) 29.5 % (22.0-44.0); MEAN CORPUSCULAR HEMOGLOBIN 26.7 pg (26.0-34.0); MEAN CORPUSCULAR HGB CONC 32.4 G/dL (31.0-37.0); MEAN CORPUSCULAR VOLUME 82 fL (80-100); MONOCYTES % (AUTO) 10.5 % (2.0-9.0); NEUTROPHILS # (AUTO) 5.3 K/uL (1.8-7.7); NEUTROPHILS % (AUTO) 56.8 % (40.0-70.0); PLATELET COUNT (AUTO) 277 K/uL (150-450); RED BLOOD CELL COUNT(AUTO) 4.32 MIL/uL (4.00-5.20); RED CELL DISTRIBUTION WIDTH 18.1 % (11.5-14.5); WHITE BLOOD COUNT (AUTO) 9.3 K/uL (4.5-11.0)
[2023-04-23 23:22] LABS: ANION GAP 9 mmol/L (8-16); CALCIUM, TOTAL 8.9 mg/dL (8.8-10.5); CARBON DIOXIDE 26 mmol/L (22-29); CHLORIDE 106 mmol/L (98-107); CREATININE 0.96 mg/dL (0.60-1.30); GLOMERULAR FILTR. RATE CALC > 60 mL/min (>60); GLUCOSE,RANDOM 109 mg/dL (70-110); POTASSIUM 3.6 mmol/L (3.5-5.1); SODIUM SERUM 141 mmol/L (136-145); UREA NITROGEN, BLOOD 6 mg/dL (7-18)
[2023-04-23 23:29] LABS: ALANINE AMINOTRANSFERASE 68 U/L (12-78); ALBUMIN 3.2 g/dL (3.4-5.0); ALKALINE PHOSPHATASE 126 U/L (46-116); ASPARTATE AMINOTRANSFERASE 62 U/L (15-37); BILIRUBIN,TOTAL 0.2 mg/dL (0.1-1.0); TOTAL PROTEIN, SERUM 8.3 g/dL (6.4-8.2)
[2023-04-23 23:43] LABS: PH,URINE DRUG SCREEN 7.5 (5.0-8.0)
[2023-04-23] MEDS ORDERED: ZOLPIDEM TARTRATE 10 MG TABLET PO PRN (23:45)
[2023-04-23] MEDS ORDERED: LORazepam 2 MG TABLET PO PRN (23:45)
[2023-04-23] MEDS ORDERED: HALOPERIDOL 5 MG TABLET PO PRN (23:45)
[2023-04-23 23:58] LABS: AMPHET/METH SCREEN,URINE NEGATIVE (NEGATIVE); BARBITURATE SCREEN, URINE NEGATIVE (NEGATIVE); BENZODIAZEPINES SCREEN,URINE NEGATIVE (NEGATIVE); CANNABINOID SCREEN,URINE NEGATIVE (NEGATIVE); COCAINE SCREEN,URINE NEGATIVE (NEGATIVE); METHADONE SCREEN, URINE NEGATIVE (NEGATIVE); OPIATE SCREEN,URINE NEGATIVE (NEGATIVE); PHENCYCLIDINE SCREEN,URINE NEGATIVE (NEGATIVE)
[2023-04-23 23:59] LABS: APPEARANCE,URINE CLEAR (CLEAR); BILIRUBIN,URINE NEGATIVE (NEGATIVE); COLOR,URINE COLORLESS (YELLOW); GLUCOSE, URINE (UA) NEGATIVE (NEGATIVE); KETONES,URINE NEGATIVE (NEGATIVE); LEUKOCYTE ESTERASE ,URINE SMALL (NEGATIVE); NITRATE,URINE NEGATIVE (NEGATIVE); OCCULT BLOOD,URINE NEGATIVE (NEGATIVE); PH,URINE 7.5 (5.0-8.0); PROTEIN,URINE NEGATIVE (NEGATIVE); SPECIFIC GRAVITIY, URINE 1.006 (1.003-1.030); UROBILINOGEN,URINE <=1.0 mg/dL (<=1.0)
[2023-04-24 00:02] LABS: ALCOHOL, URINE DRUG SCREEN NEGATIVE (NEGATIVE)
[2023-04-24 00:05] LABS: INFLUENZA A-RTPCR,COMBO NEGATIVE FOR FLU A (NEGATIVE); INFLUENZA B-RTPCR,COMBO NEGATIVE FOR FLU B (NEGATIVE); RESPIRATORY SYNCYTIAL VRS-PCR NEGATIVE (NEGATIVE); SARS COVID19 RTPCR, COMBO NEGATIVE (NEGATIVE)
[2023-04-24 00:12] LABS: BACTERIA,URINE None Seen /HPF (None Seen); RBC,URINE None Seen /HPF (0-2)
[2023-04-24 00:13] LABS: SQUAMOUS EPITHELIAL CELL,UR Few /LPF (None Seen)
[2023-04-24 13:00] VITALS: BP 122/75; PULSE 73; RESP 17
== END 2023-04-24 18:25 | disposition home or self-care (01) ==
LOC: EMS 21:41
DX: F25.9 Schizoaffective disorder, unspecified (principal); F31.9 Bipolar disorder, unspecified; E11.9 Type 2 diabetes mellitus without complications; Z87.891 Personal history of nicotine dependence; Z98.890 Other specified postprocedural states; Z20.822 Contact with and (suspected) exposure to COVID-19
CPT/HCPCS: 99285; 0241U; 80053; 81001; 85025; 36415; 80307

== ENCOUNTER 2023-04-25 23:17 | Inpatient (IN) | payer MEDICAID ==
[~2023-04-25] VITALS: Ht 154.9 cm; Wt 105.0 kg
[2023-04-26 00:31] LABS: GLUCOMETER DEV NAME(LOC) POC.BV; POC SARS-COV2 AG, FIA NEGATIVE (NEGATIVE)
[2023-04-26 01:16] VITALS: BP 110/69; PULSE 89; RESP 18; TEMP 97.3
[2023-04-26] MEDS ORDERED: INFLUENZA VIRUS VACCINE QVS 2023-24 (6MO+)/PF 60 MCG/0.5 ML SYRINGE IM. ONE (02:45)
[2023-04-26] MEDS ORDERED: IBUPROFEN 400 MG TABLET PO PRN (07:15)
[2023-04-26] MEDS ORDERED: MAG HYDROX/ALUMINUM HYD/SIMETH ES 30 ML SUSPENSION UDCUP PO PRN (07:15)
[2023-04-26] MEDS ORDERED: ACETAMINOPHEN 325 MG TABLET PO PRN (07:15)
[2023-04-26] MEDS ORDERED: MAGNESIUM HYDROXIDE SUSPENSION 30 ML UDCUP PO PRN (07:15)
[2023-04-26] MEDS ORDERED: LOPERAMIDE HCL 2 MG CAPSULE PO PRN (07:15)
[2023-04-26] MEDS ORDERED: GuaiFENesin/D-METHORPHAN [SUGAR-FREE] 200-20MG/10 ML SYRUP UDCUP PO PRN (07:15)
[2023-04-26] MEDS ORDERED: DOCUSATE SODIUM 100 MG CAPSULE PO PRN (07:15)
[2023-04-26] MEDS ORDERED: CloNIDine HCL 0.1 MG TABLET PO PRN (07:15)
[2023-04-26] MEDS ORDERED: ALBUTEROL SULFATE HFA 90 MCG/PUFF 8 GM INHALER IH PRN (07:15)
[2023-04-26] MEDS ORDERED: NICOTINE 14 MG/24 HOUR PATCH TD PRN (07:15)
[2023-04-26] MEDS ORDERED: PETROLATUM,WHITE 28 GM JELLY TP PRN (07:15)
[2023-04-26] MEDS ORDERED: ONDANSETRON HCL 4 MG TABLET PO PRN (07:15)
[2023-04-26 08:46] VITALS: BP 106/67; PULSE 75; RESP 18; TEMP 97.5
[2023-04-26] MEDS: LURASIDONE HCL 40 MG TABLET PO SCH (10:56)
[2023-04-26] MEDS: LamoTRIgine 100 MG TABLET PO SCH ×2 (10:57→20:25)
[2023-04-26] MEDS: LORazepam 2 MG TABLET PO PRN (10:57)
[2023-04-26] MEDS: CloZAPine 25 MG TABLET PO SCH (17:30)
[2023-04-26] MEDS: CloZAPine 100 MG TABLET PO SCH (20:23)
[2023-04-26] MEDS: DIVALPROEX SODIUM 500 MG ER TABLET PO SCH (20:24)
[2023-04-26] MEDS: BENZTROPINE MESYLATE 2 MG TABLET PO SCH (20:24)
[2023-04-26] MEDS: LITHIUM CARBONATE 600 MG CAPSULE PO SCH (20:24)
[2023-04-26] MEDS: LURASIDONE HCL 80 MG TABLET PO SCH (20:25)
[2023-04-26] MEDS: ESCITALOPRAM OXALATE 20 MG TABLET PO SCH (20:25)
[2023-04-26 23:07] VITALS: BP 112/72; PULSE 63; RESP 18; TEMP 97.3
[2023-04-27] MEDS: LURASIDONE HCL 40 MG TABLET PO SCH (06:44)
[2023-04-27] MEDS: LamoTRIgine 100 MG TABLET PO SCH ×2 (08:21→20:02)
[2023-04-27] MEDS: CloZAPine 25 MG TABLET PO SCH (08:22)
[2023-04-27 08:40] VITALS: BP 100/60; PULSE 92; RESP 18; TEMP 97.6; O2SAT 95
[2023-04-27 08:40] LABS: HEMOGLOBIN A1C 5.2 % (3.8-5.6)
[2023-04-27 08:48] LABS: ALANINE AMINOTRANSFERASE 76 U/L (12-78); ALBUMIN 3.2 g/dL (3.4-5.0); ALKALINE PHOSPHATASE 96 U/L (46-116); ANION GAP 6 mmol/L (8-16); ASPARTATE AMINOTRANSFERASE 80 U/L (15-37); BILIRUBIN,TOTAL 0.3 mg/dL (0.1-1.0); CALCIUM, TOTAL 9.4 mg/dL (8.8-10.5); CARBON DIOXIDE 29 mmol/L (22-29); CHLORIDE 105 mmol/L (98-107); CREATININE 0.78 mg/dL (0.60-1.30); FREE T4 (FREE THYROXINE) 0.84 ng/dL (0.76-1.46); GLOMERULAR FILTR. RATE CALC > 60 mL/min (>60); GLUCOSE,RANDOM 84 mg/dL (70-110); HCG,QUANTITATIVE < 1 mIU/mL (0-6); POTASSIUM 4.3 mmol/L (3.5-5.1); SODIUM SERUM 140 mmol/L (136-145); T4 (THYROXINE) 5.6 mcg/dL (4.7-13.3); THYROID STIMULATING HORMONE 5.51 uIU/mL (0.36-3.74); TOTAL PROTEIN, SERUM 8.1 g/dL (6.4-8.2); UREA NITROGEN, BLOOD 8 mg/dL (7-18)
[2023-04-27] MEDS: LORazepam 2 MG TABLET PO PRN (18:54)
[2023-04-27] MEDS: HALOPERIDOL 5 MG TABLET PO PRN (18:54)
[2023-04-27] MEDS: LURASIDONE HCL 80 MG TABLET PO SCH (20:02)
[2023-04-27] MEDS: BENZTROPINE MESYLATE 2 MG TABLET PO SCH (20:03)
[2023-04-27] MEDS: ESCITALOPRAM OXALATE 20 MG TABLET PO SCH (20:03)
[2023-04-27] MEDS: CloZAPine 100 MG TABLET PO SCH (20:03)
[2023-04-27] MEDS: LITHIUM CARBONATE 600 MG CAPSULE PO SCH (20:03)
[2023-04-27] MEDS: DIVALPROEX SODIUM 500 MG ER TABLET PO SCH (20:03)
[2023-04-28 05:18] VITALS: BP 118/70; PULSE 78; RESP 18; TEMP 97.6; O2SAT 96
[2023-04-28] MEDS: LURASIDONE HCL 40 MG TABLET PO SCH (06:35)
[2023-04-28] MEDS: LamoTRIgine 100 MG TABLET PO SCH ×2 (08:24→20:36)
[2023-04-28] MEDS: CloZAPine 25 MG TABLET PO SCH (08:24)
[2023-04-28 08:51] VITALS: BP 122/84; PULSE 79; RESP 16; TEMP 98.6; O2SAT 97
[2023-04-28] MEDS ORDERED: TUBERCULIN, PURIFIED PROTEIN DERIVATIVE 5 TU/0.1 ML SYRINGE ID ONE (19:15)
[2023-04-28 20:24] VITALS: BP 110/65; PULSE 100; RESP 18; TEMP 97.5
[2023-04-28] MEDS: LITHIUM CARBONATE 600 MG CAPSULE PO SCH (20:36)
[2023-04-28] MEDS: BENZTROPINE MESYLATE 2 MG TABLET PO SCH (20:36)
[2023-04-28] MEDS: ESCITALOPRAM OXALATE 20 MG TABLET PO SCH (20:36)
[2023-04-28] MEDS: CloZAPine 100 MG TABLET PO SCH (20:36)
[2023-04-28] MEDS: LURASIDONE HCL 80 MG TABLET PO SCH (20:36)
[2023-04-28] MEDS: DIVALPROEX SODIUM 500 MG ER TABLET PO SCH (20:36)
[2023-04-29] MEDS: LURASIDONE HCL 40 MG TABLET PO SCH (06:54)
[2023-04-29] MEDS: LamoTRIgine 100 MG TABLET PO SCH ×2 (08:03→20:28)
[2023-04-29] MEDS: LORazepam 2 MG TABLET PO PRN ×2 (08:03→16:03)
[2023-04-29] MEDS: CloZAPine 25 MG TABLET PO SCH (08:03)
[2023-04-29] MEDS: HALOPERIDOL 5 MG TABLET PO PRN ×2 (08:03→16:03)
[2023-04-29 08:12] LABS: BASOPHILS % (AUTO) 0.4 % (0.0-2.0); HEMATOCRIT 35.5 % (36-46); HEMOGLOBIN 11.5 g/dL (12.0-16.0); LYMPHOCYTES # (AUTO) 2.8 K/uL (1.0-4.8); LYMPHOCYTES % (AUTO) 32.3 % (22.0-44.0); MEAN CORPUSCULAR HEMOGLOBIN 26.8 pg (26.0-34.0); MEAN CORPUSCULAR HGB CONC 32.5 G/dL (31.0-37.0); MEAN CORPUSCULAR VOLUME 82 fL (80-100); MONOCYTES # (AUTO) 0.5 K/uL (0.1-1.0); MONOCYTES % (AUTO) 6.1 % (2.0-9.0); NEUTROPHILS # (AUTO) 5.1 K/uL (1.8-7.7); NEUTROPHILS % (AUTO) 58.2 % (40.0-70.0); PLATELET COUNT (AUTO) 284 K/uL (150-450); RED BLOOD CELL COUNT(AUTO) 4.31 MIL/uL (4.00-5.20); RED CELL DISTRIBUTION WIDTH 17.6 % (11.5-14.5); WHITE BLOOD COUNT (AUTO) 8.7 K/uL (4.5-11.0)
[2023-04-29 09:23] VITALS: BP 117/61; PULSE 99; RESP 18; TEMP 98.3
[2023-04-29] MEDS: ESCITALOPRAM OXALATE 20 MG TABLET PO SCH (20:27)
[2023-04-29] MEDS: LURASIDONE HCL 80 MG TABLET PO SCH (20:27)
[2023-04-29] MEDS: CloZAPine 100 MG TABLET PO SCH (20:28)
[2023-04-29] MEDS: DIVALPROEX SODIUM 500 MG ER TABLET PO SCH (20:28)
[2023-04-29] MEDS: LITHIUM CARBONATE 600 MG CAPSULE PO SCH (20:28)
[2023-04-29] MEDS: BENZTROPINE MESYLATE 2 MG TABLET PO SCH (20:28)
[2023-04-30] VITALS (9 sets, daily range): BP systolic 101–139; BP diastolic 50–73; PULSE 87–110; RESP 16–18; TEMP 97–98; O2SAT 96–98
[2023-04-30] MEDS: LURASIDONE HCL 40 MG TABLET PO SCH (06:49)
[2023-04-30] MEDS: LORazepam 2 MG TABLET PO PRN (07:49)
[2023-04-30] MEDS: HALOPERIDOL 5 MG TABLET PO PRN (07:49)
[2023-04-30] MEDS: LamoTRIgine 100 MG TABLET PO SCH ×2 (08:04→20:32)
[2023-04-30] MEDS: CloZAPine 25 MG TABLET PO SCH (08:04)
[2023-04-30] MEDS: CloZAPine 100 MG TABLET PO SCH (20:32)
[2023-04-30] MEDS: ESCITALOPRAM OXALATE 20 MG TABLET PO SCH (20:32)
[2023-04-30] MEDS: LURASIDONE HCL 80 MG TABLET PO SCH (20:32)
[2023-04-30] MEDS: BENZTROPINE MESYLATE 2 MG TABLET PO SCH (20:32)
[2023-04-30] MEDS: LITHIUM CARBONATE 600 MG CAPSULE PO SCH (20:32)
[2023-04-30] MEDS: DIVALPROEX SODIUM 500 MG ER TABLET PO SCH (21:03)
[2023-05-01] MEDS: LURASIDONE HCL 40 MG TABLET PO SCH (06:47)
[2023-05-01] MEDS: LamoTRIgine 100 MG TABLET PO SCH ×2 (08:32→20:04)
[2023-05-01] MEDS: CloZAPine 25 MG TABLET PO SCH (08:32)
[2023-05-01 09:37] VITALS: BP 135/82; PULSE 77; RESP 17; TEMP 97.6; O2SAT 97
[2023-05-01] MEDS: DIVALPROEX SODIUM 500 MG ER TABLET PO SCH (20:03)
[2023-05-01] MEDS: LURASIDONE HCL 80 MG TABLET PO SCH (20:04)
[2023-05-01] MEDS: CloZAPine 100 MG TABLET PO SCH (20:04)
[2023-05-01] MEDS: LITHIUM CARBONATE 600 MG CAPSULE PO SCH (20:04)
[2023-05-01] MEDS: BENZTROPINE MESYLATE 2 MG TABLET PO SCH (20:04)
[2023-05-01] MEDS: ESCITALOPRAM OXALATE 20 MG TABLET PO SCH (20:04)
[2023-05-02 00:27] VITALS: RESP 18
[2023-05-02] MEDS: LURASIDONE HCL 40 MG TABLET PO SCH (06:36)
[2023-05-02] MEDS: CloZAPine 25 MG TABLET PO SCH (08:24)
[2023-05-02] MEDS: LamoTRIgine 100 MG TABLET PO SCH ×2 (08:24→20:02)
[2023-05-02 09:00] VITALS: BP 105/60; PULSE 85; RESP 18; TEMP 97.9; O2SAT 99
[2023-05-02] MEDS: LITHIUM CARBONATE 600 MG CAPSULE PO SCH (20:02)
[2023-05-02] MEDS: BENZTROPINE MESYLATE 2 MG TABLET PO SCH (20:02)
[2023-05-02] MEDS: DIVALPROEX SODIUM 500 MG ER TABLET PO SCH (20:02)
[2023-05-02] MEDS: LURASIDONE HCL 80 MG TABLET PO SCH (20:02)
[2023-05-02] MEDS: ESCITALOPRAM OXALATE 20 MG TABLET PO SCH (20:02)
[2023-05-02] MEDS: CloZAPine 100 MG TABLET PO SCH (20:02)
[2023-05-02 20:55] VITALS: BP 101/60; PULSE 92; RESP 17; TEMP 97.3; O2SAT 98
[2023-05-03] MEDS: LURASIDONE HCL 40 MG TABLET PO SCH (06:51)
[2023-05-03 08:26] VITALS: BP 130/79; PULSE 96; RESP 18; TEMP 98; O2SAT 97
[2023-05-03] MEDS: CloZAPine 25 MG TABLET PO SCH (08:28)
[2023-05-03] MEDS: LORazepam 2 MG TABLET PO PRN ×2 (08:29→19:35)
[2023-05-03] MEDS: LamoTRIgine 100 MG TABLET PO SCH ×2 (08:29→20:06)
[2023-05-03] MEDS: HALOPERIDOL 5 MG TABLET PO PRN (19:35)
[2023-05-03 20:00] VITALS: BP 122/65; PULSE 95; RESP 18; TEMP 98.3; O2SAT 98
[2023-05-03] MEDS: LURASIDONE HCL 80 MG TABLET PO SCH (20:06)
[2023-05-03] MEDS: DIVALPROEX SODIUM 500 MG ER TABLET PO SCH (20:06)
[2023-05-03] MEDS: ESCITALOPRAM OXALATE 20 MG TABLET PO SCH (20:06)
[2023-05-03] MEDS: CloZAPine 100 MG TABLET PO SCH (20:06)
[2023-05-03] MEDS: BENZTROPINE MESYLATE 2 MG TABLET PO SCH (20:06)
[2023-05-03] MEDS: LITHIUM CARBONATE 600 MG CAPSULE PO SCH (20:06)
[2023-05-03] MEDS: ZOLPIDEM TARTRATE 10 MG TABLET PO PRN (21:30)
[2023-05-04] MEDS: LURASIDONE HCL 40 MG TABLET PO SCH (06:24)
[2023-05-04 08:22] VITALS: BP 100/62; PULSE 98; RESP 16; TEMP 97.8; O2SAT 100
[2023-05-04] MEDS: LamoTRIgine 100 MG TABLET PO SCH ×2 (08:58→20:26)
[2023-05-04] MEDS: CloZAPine 25 MG TABLET PO SCH (08:58)
[2023-05-04] MEDS: DIVALPROEX SODIUM 500 MG ER TABLET PO SCH (20:25)
[2023-05-04] MEDS: ESCITALOPRAM OXALATE 20 MG TABLET PO SCH (20:26)
[2023-05-04] MEDS: CloZAPine 100 MG TABLET PO SCH (20:26)
[2023-05-04] MEDS: LITHIUM CARBONATE 600 MG CAPSULE PO SCH (20:26)
[2023-05-04] MEDS: BENZTROPINE MESYLATE 2 MG TABLET PO SCH (20:26)
[2023-05-04] MEDS: LURASIDONE HCL 80 MG TABLET PO SCH (20:26)
[2023-05-05 00:35] VITALS: BP 107/64; PULSE 95; RESP 18; TEMP 98; O2SAT 97
[2023-05-05] MEDS: LURASIDONE HCL 40 MG TABLET PO SCH (06:04)
[2023-05-05 08:08] VITALS: BP 100/62; PULSE 90; RESP 16; TEMP 97.6; O2SAT 97
[2023-05-05] MEDS: LamoTRIgine 100 MG TABLET PO SCH ×2 (08:40→20:11)
[2023-05-05] MEDS: CloZAPine 25 MG TABLET PO SCH (08:40)
[2023-05-05] MEDS: DIVALPROEX SODIUM 500 MG ER TABLET PO SCH (20:11)
[2023-05-05] MEDS: ESCITALOPRAM OXALATE 20 MG TABLET PO SCH (20:11)
[2023-05-05] MEDS: LURASIDONE HCL 80 MG TABLET PO SCH (20:11)
[2023-05-05] MEDS: BENZTROPINE MESYLATE 2 MG TABLET PO SCH (20:11)
[2023-05-05] MEDS: LITHIUM CARBONATE 600 MG CAPSULE PO SCH (20:11)
[2023-05-05] MEDS: CloZAPine 100 MG TABLET PO SCH (20:11)
[2023-05-05 21:11] VITALS: BP 120/77; PULSE 93; RESP 18; TEMP 97.8; O2SAT 93
[2023-05-06] MEDS: LURASIDONE HCL 40 MG TABLET PO SCH (06:15)
[2023-05-06 08:04] LABS: BASOPHILS % (AUTO) 0.3 % (0.0-2.0); EOSINOPHILS % (AUTO) 2.7 % (1.0-6.0); HEMATOCRIT 36.5 % (36-46); HEMOGLOBIN 11.7 g/dL (12.0-16.0); LYMPHOCYTES # (AUTO) 3.2 K/uL (1.0-4.8); LYMPHOCYTES % (AUTO) 32.2 % (22.0-44.0); MEAN CORPUSCULAR HEMOGLOBIN 26.7 pg (26.0-34.0); MEAN CORPUSCULAR HGB CONC 32.2 G/dL (31.0-37.0); MEAN CORPUSCULAR VOLUME 83 fL (80-100); MONOCYTES # (AUTO) 0.7 K/uL (0.1-1.0); MONOCYTES % (AUTO) 6.9 % (2.0-9.0); NEUTROPHILS # (AUTO) 5.7 K/uL (1.8-7.7); NEUTROPHILS % (AUTO) 57.9 % (40.0-70.0); PLATELET COUNT (AUTO) 294 K/uL (150-450); RED BLOOD CELL COUNT(AUTO) 4.39 MIL/uL (4.00-5.20); RED CELL DISTRIBUTION WIDTH 17.7 % (11.5-14.5); WHITE BLOOD COUNT (AUTO) 9.8 K/uL (4.5-11.0)
[2023-05-06 08:10] VITALS: BP 137/80; PULSE 93; RESP 18; TEMP 98; O2SAT 97
[2023-05-06] MEDS: CloZAPine 25 MG TABLET PO SCH (08:52)
[2023-05-06] MEDS: LamoTRIgine 100 MG TABLET PO SCH ×2 (08:52→20:05)
[2023-05-06] MEDS: DIVALPROEX SODIUM 500 MG ER TABLET PO SCH (20:04)
[2023-05-06] MEDS: LITHIUM CARBONATE 600 MG CAPSULE PO SCH (20:04)
[2023-05-06] MEDS: ESCITALOPRAM OXALATE 20 MG TABLET PO SCH (20:05)
[2023-05-06] MEDS: CloZAPine 100 MG TABLET PO SCH (20:05)
[2023-05-06] MEDS: BENZTROPINE MESYLATE 2 MG TABLET PO SCH (20:05)
[2023-05-06] MEDS: LURASIDONE HCL 80 MG TABLET PO SCH (20:08)
[2023-05-07 03:16] VITALS: BP 110/66; PULSE 95; RESP 18; TEMP 98.2; O2SAT 97
[2023-05-07] MEDS: LURASIDONE HCL 40 MG TABLET PO SCH (06:19)
[2023-05-07] MEDS: CloZAPine 25 MG TABLET PO SCH (08:09)
[2023-05-07] MEDS: LamoTRIgine 100 MG TABLET PO SCH ×2 (08:09→21:11)
[2023-05-07 08:21] VITALS: BP 112/67; PULSE 95; RESP 16; TEMP 97.9; O2SAT 98
[2023-05-07] MEDS: HALOPERIDOL 5 MG TABLET PO PRN (18:00)
[2023-05-07] MEDS: LORazepam 2 MG TABLET PO PRN (18:00)
[2023-05-07] MEDS: CloZAPine 100 MG RAPDIS TABLET PO SCH (21:08)
[2023-05-07] MEDS: LITHIUM CARBONATE 600 MG CAPSULE PO SCH (21:10)
[2023-05-07] MEDS: BENZTROPINE MESYLATE 2 MG TABLET PO SCH (21:10)
[2023-05-07] MEDS: VALPROIC ACID 250 MG/5 ML SOLUTION UDCUP PO SCH (21:12)
[2023-05-07 21:15] VITALS: BP 107/82; PULSE 96; RESP 16; TEMP 97.8; O2SAT 98
[2023-05-07] MEDS: ESCITALOPRAM OXALATE 20 MG TABLET PO SCH (21:17)
[2023-05-07] MEDS: LURASIDONE HCL 80 MG TABLET PO SCH (21:17)
[2023-05-08] MEDS: LURASIDONE HCL 40 MG TABLET PO SCH (06:33)
[2023-05-08 08:14] VITALS: BP 106/60; PULSE 79; RESP 16; TEMP 97.6; O2SAT 97
[2023-05-08] MEDS: LORazepam 2 MG TABLET PO PRN (08:24)
[2023-05-08] MEDS: LamoTRIgine 100 MG TABLET PO SCH ×2 (08:24→20:38)
[2023-05-08] MEDS: CloZAPine 100 MG RAPDIS TABLET PO SCH ×2 (08:25→20:44)
[2023-05-08] MEDS: HALOPERIDOL 5 MG TABLET PO PRN (08:25)
[2023-05-08] MEDS: VALPROIC ACID 250 MG/5 ML SOLUTION UDCUP PO SCH ×2 (08:37→20:39)
[2023-05-08] MEDS: LITHIUM CARBONATE 600 MG CAPSULE PO SCH (20:38)
[2023-05-08] MEDS: ESCITALOPRAM OXALATE 20 MG TABLET PO SCH (20:38)
[2023-05-08] MEDS: LURASIDONE HCL 80 MG TABLET PO SCH (20:38)
[2023-05-08] MEDS: BENZTROPINE MESYLATE 2 MG TABLET PO SCH (20:39)
[2023-05-08 21:19] VITALS: BP 121/80; PULSE 93; RESP 18; TEMP 97.9; O2SAT 96
[2023-05-09] MEDS: LURASIDONE HCL 40 MG TABLET PO SCH (06:18)
[2023-05-09] MEDS: HALOPERIDOL 5 MG TABLET PO PRN (08:08)
[2023-05-09] MEDS: CloZAPine 100 MG RAPDIS TABLET PO SCH ×2 (08:08→20:19)
[2023-05-09] MEDS: LamoTRIgine 100 MG TABLET PO SCH ×2 (08:08→20:19)
[2023-05-09] MEDS: LORazepam 2 MG TABLET PO PRN (08:08)
[2023-05-09] MEDS: VALPROIC ACID 250 MG/5 ML SOLUTION UDCUP PO SCH (08:09)
[2023-05-09 09:04] VITALS: BP 104/71; PULSE 79; RESP 18; TEMP 98; O2SAT 97
[2023-05-09 16:11] LABS: GLUCOMETER DEV NAME(LOC) BV3S.; GLUCOSE,POINT OF CARE 97 MG/DL (70-110)
[2023-05-09] MEDS: ESCITALOPRAM OXALATE 20 MG TABLET PO SCH (20:19)
[2023-05-09] MEDS: LITHIUM CARBONATE 600 MG CAPSULE PO SCH (20:19)
[2023-05-09] MEDS: LURASIDONE HCL 80 MG TABLET PO SCH (20:19)
[2023-05-09] MEDS: BENZTROPINE MESYLATE 2 MG TABLET PO SCH (20:19)
[2023-05-10] MEDS: LURASIDONE HCL 40 MG TABLET PO SCH (06:31)
[2023-05-10 06:55] VITALS: BP 115/72; PULSE 75; RESP 18; TEMP 97.6; O2SAT 98
[2023-05-10] MEDS: CloZAPine 100 MG RAPDIS TABLET PO SCH ×2 (08:01→20:01)
[2023-05-10] MEDS: LamoTRIgine 100 MG TABLET PO SCH ×2 (08:01→20:01)
[2023-05-10] MEDS: HALOPERIDOL 5 MG TABLET PO PRN (08:15)
[2023-05-10] MEDS: LORazepam 2 MG TABLET PO PRN (08:16)
[2023-05-10 08:37] VITALS: BP 108/53; PULSE 104; RESP 18; TEMP 97.5; O2SAT 97
[2023-05-10] MEDS ORDERED: VALPROIC ACID 250 MG/5 ML SOLUTION UDCUP PO SCH (09:00)
[2023-05-10] MEDS: BENZTROPINE MESYLATE 2 MG TABLET PO SCH (20:00)
[2023-05-10] MEDS: LITHIUM CARBONATE 600 MG CAPSULE PO SCH (20:01)
[2023-05-10] MEDS: ESCITALOPRAM OXALATE 20 MG TABLET PO SCH (20:01)
[2023-05-10] MEDS: LURASIDONE HCL 80 MG TABLET PO SCH (20:01)
[2023-05-10 22:04] VITALS: BP 101/62; PULSE 64; RESP 18; TEMP 97.8; O2SAT 98
[2023-05-11] MEDS: LURASIDONE HCL 40 MG TABLET PO SCH (06:57)
[2023-05-11] MEDS: LamoTRIgine 100 MG TABLET PO SCH ×2 (08:24→20:08)
[2023-05-11] MEDS: CloZAPine 100 MG RAPDIS TABLET PO SCH ×2 (08:24→20:07)
[2023-05-11] MEDS: LITHIUM CARBONATE 600 MG CAPSULE PO SCH (20:07)
[2023-05-11] MEDS: BENZTROPINE MESYLATE 2 MG TABLET PO SCH (20:07)
[2023-05-11] MEDS: LURASIDONE HCL 80 MG TABLET PO SCH (20:08)
[2023-05-11] MEDS: ESCITALOPRAM OXALATE 20 MG TABLET PO SCH (20:08)
[2023-05-11 22:56] VITALS: BP 111/78; PULSE 69; RESP 18; TEMP 97.7; O2SAT 99
[2023-05-12] MEDS: LURASIDONE HCL 40 MG TABLET PO SCH (06:10)
[2023-05-12] MEDS: CloZAPine 100 MG RAPDIS TABLET PO SCH ×2 (08:09→20:14)
[2023-05-12] MEDS: LamoTRIgine 100 MG TABLET PO SCH ×2 (08:09→20:14)
[2023-05-12 08:15] VITALS: BP 119/79; PULSE 77; RESP 16; TEMP 98; O2SAT 98
[2023-05-12] MEDS: HALOPERIDOL 5 MG TABLET PO PRN (16:16)
[2023-05-12] MEDS: VALPROIC ACID 250 MG/5 ML SOLUTION UDCUP PO SCH (20:12)
[2023-05-12] MEDS: BENZTROPINE MESYLATE 2 MG TABLET PO SCH (20:14)
[2023-05-12] MEDS: LURASIDONE HCL 80 MG TABLET PO SCH (20:14)
[2023-05-12] MEDS: ESCITALOPRAM OXALATE 20 MG TABLET PO SCH (20:14)
[2023-05-12] MEDS: LITHIUM CARBONATE 600 MG CAPSULE PO SCH (20:14)
[2023-05-12 22:14] VITALS: BP 118/73; PULSE 82; RESP 17; TEMP 98.5; O2SAT 98
[2023-05-13] VITALS (9 sets, daily range): BP systolic 107–134; BP diastolic 61–85; PULSE 80–93; RESP 16–18; TEMP 98–98.7; O2SAT 97–98
[2023-05-13] MEDS: LURASIDONE HCL 40 MG TABLET PO SCH (06:50)
[2023-05-13 07:35] LABS: BASOPHILS % (AUTO) 0.2 % (0.0-2.0); EOSINOPHILS % (AUTO) 3.2 % (1.0-6.0); HEMATOCRIT 35.3 % (36-46); HEMOGLOBIN 11.4 g/dL (12.0-16.0); LYMPHOCYTES # (AUTO) 2.7 K/uL (1.0-4.8); LYMPHOCYTES % (AUTO) 34.1 % (22.0-44.0); MEAN CORPUSCULAR HEMOGLOBIN 26.8 pg (26.0-34.0); MEAN CORPUSCULAR HGB CONC 32.4 G/dL (31.0-37.0); MEAN CORPUSCULAR VOLUME 83 fL (80-100); MONOCYTES % (AUTO) 12.2 % (2.0-9.0); NEUTROPHILS % (AUTO) 50.3 % (40.0-70.0); PLATELET COUNT (AUTO) 217 K/uL (150-450); RED BLOOD CELL COUNT(AUTO) 4.28 MIL/uL (4.00-5.20); RED CELL DISTRIBUTION WIDTH 17.7 % (11.5-14.5)
[2023-05-13] MEDS: LamoTRIgine 100 MG TABLET PO SCH ×2 (08:13→20:35)
[2023-05-13] MEDS: CloZAPine 100 MG RAPDIS TABLET PO SCH ×2 (08:13→20:35)
[2023-05-13] MEDS: VALPROIC ACID 250 MG/5 ML SOLUTION UDCUP PO SCH ×2 (08:13→20:34)
[2023-05-13] MEDS: ESCITALOPRAM OXALATE 20 MG TABLET PO SCH (20:35)
[2023-05-13] MEDS: BENZTROPINE MESYLATE 2 MG TABLET PO SCH (20:35)
[2023-05-13] MEDS: LURASIDONE HCL 80 MG TABLET PO SCH (20:35)
[2023-05-13] MEDS: LITHIUM CARBONATE 600 MG CAPSULE PO SCH (20:35)
[2023-05-14] MEDS: LURASIDONE HCL 40 MG TABLET PO SCH (06:22)
[2023-05-14] MEDS: LamoTRIgine 100 MG TABLET PO SCH ×2 (08:37→20:32)
[2023-05-14] MEDS: CloZAPine 100 MG RAPDIS TABLET PO SCH ×2 (08:37→20:32)
[2023-05-14 08:38] VITALS: RESP 16
[2023-05-14] MEDS: VALPROIC ACID 250 MG/5 ML SOLUTION UDCUP PO SCH ×2 (08:44→20:44)
[2023-05-14] MEDS: HALOPERIDOL 5 MG TABLET PO PRN (18:05)
[2023-05-14 20:06] VITALS: BP 130/82; PULSE 86; RESP 18; TEMP 97.7
[2023-05-14] MEDS: ESCITALOPRAM OXALATE 20 MG TABLET PO SCH (20:32)
[2023-05-14] MEDS: LITHIUM CARBONATE 600 MG CAPSULE PO SCH (20:32)
[2023-05-14] MEDS: BENZTROPINE MESYLATE 2 MG TABLET PO SCH (20:32)
[2023-05-14] MEDS: LURASIDONE HCL 80 MG TABLET PO SCH (20:32)
[2023-05-15] MEDS: LURASIDONE HCL 40 MG TABLET PO SCH (06:15)
[2023-05-15] MEDS: CloZAPine 100 MG RAPDIS TABLET PO SCH ×2 (08:26→20:08)
[2023-05-15] MEDS: VALPROIC ACID 250 MG/5 ML SOLUTION UDCUP PO SCH ×2 (08:26→20:17)
[2023-05-15] MEDS: LamoTRIgine 100 MG TABLET PO SCH ×2 (08:26→20:08)
[2023-05-15 08:34] VITALS: BP 108/74; PULSE 88; RESP 18; TEMP 96.8; O2SAT 99
[2023-05-15] MEDS: BENZTROPINE MESYLATE 2 MG TABLET PO SCH (20:07)
[2023-05-15] MEDS: LITHIUM CARBONATE 600 MG CAPSULE PO SCH (20:07)
[2023-05-15] MEDS: ESCITALOPRAM OXALATE 20 MG TABLET PO SCH (20:08)
[2023-05-15] MEDS: LURASIDONE HCL 80 MG TABLET PO SCH (20:08)
[2023-05-15 23:24] VITALS: BP 110/71; PULSE 86; RESP 18; TEMP 97.6; O2SAT 98
[2023-05-16] MEDS: LURASIDONE HCL 40 MG TABLET PO SCH (06:43)
[2023-05-16] MEDS: CloZAPine 100 MG RAPDIS TABLET PO SCH ×2 (08:13→20:03)
[2023-05-16] MEDS: LamoTRIgine 100 MG TABLET PO SCH ×2 (08:13→20:03)
[2023-05-16] MEDS: VALPROIC ACID 250 MG/5 ML SOLUTION UDCUP PO SCH ×2 (08:14→20:03)
[2023-05-16] MEDS: LITHIUM CARBONATE 600 MG CAPSULE PO SCH (20:03)
[2023-05-16] MEDS: ESCITALOPRAM OXALATE 20 MG TABLET PO SCH (20:03)
[2023-05-16] MEDS: BENZTROPINE MESYLATE 2 MG TABLET PO SCH (20:03)
[2023-05-16] MEDS: LURASIDONE HCL 80 MG TABLET PO SCH (20:04)
[2023-05-17 00:06] VITALS: BP 103/60; PULSE 74; RESP 17; TEMP 97.7; O2SAT 96
[2023-05-17] MEDS: LURASIDONE HCL 40 MG TABLET PO SCH (06:12)
[2023-05-17 08:10] VITALS: RESP 16
[2023-05-17] MEDS: CloZAPine 100 MG RAPDIS TABLET PO SCH ×2 (08:22→20:14)
[2023-05-17] MEDS: LamoTRIgine 100 MG TABLET PO SCH ×2 (08:22→20:14)
[2023-05-17] MEDS: VALPROIC ACID 250 MG/5 ML SOLUTION UDCUP PO SCH ×3 (08:22→20:45)
[2023-05-17] MEDS: ZOLPIDEM TARTRATE 10 MG TABLET PO PRN (20:14)
[2023-05-17] MEDS: ESCITALOPRAM OXALATE 20 MG TABLET PO SCH (20:14)
[2023-05-17] MEDS: LITHIUM CARBONATE 600 MG CAPSULE PO SCH (20:14)
[2023-05-17 20:15] VITALS: BP 112/63; PULSE 72; RESP 17; TEMP 98.2; O2SAT 97
[2023-05-17] MEDS: LURASIDONE HCL 80 MG TABLET PO SCH (20:17)
[2023-05-17] MEDS: BENZTROPINE MESYLATE 2 MG TABLET PO SCH (20:37)
[2023-05-17] MEDS: HALOPERIDOL 5 MG TABLET PO PRN (21:19)
[2023-05-18] MEDS: LURASIDONE HCL 40 MG TABLET PO SCH ×2 (06:03→07:00)
[2023-05-18] MEDS: LamoTRIgine 100 MG TABLET PO SCH ×2 (09:47→20:45)
[2023-05-18] MEDS: CloZAPine 100 MG RAPDIS TABLET PO SCH ×2 (09:48→20:45)
[2023-05-18] MEDS: VALPROIC ACID 250 MG/5 ML SOLUTION UDCUP PO SCH ×2 (09:48→20:44)
[2023-05-18] MEDS: BENZTROPINE MESYLATE 2 MG TABLET PO SCH (20:44)
[2023-05-18] MEDS: LITHIUM CARBONATE 600 MG CAPSULE PO SCH (20:45)
[2023-05-18] MEDS: LURASIDONE HCL 80 MG TABLET PO SCH (20:45)
[2023-05-18] MEDS: ESCITALOPRAM OXALATE 20 MG TABLET PO SCH (20:45)
[2023-05-18 20:59] VITALS: BP 110/54; PULSE 87; RESP 18; TEMP 97.3; O2SAT 95
[2023-05-19] MEDS: LURASIDONE HCL 40 MG TABLET PO SCH (06:23)
[2023-05-19] MEDS: VALPROIC ACID 250 MG/5 ML SOLUTION UDCUP PO SCH ×2 (08:08→20:26)
[2023-05-19] MEDS: LamoTRIgine 100 MG TABLET PO SCH ×2 (08:08→20:26)
[2023-05-19] MEDS: CloZAPine 100 MG RAPDIS TABLET PO SCH ×2 (08:08→20:50)
[2023-05-19 09:39] VITALS: BP 122/80; PULSE 95; RESP 16; TEMP 98; O2SAT 97
[2023-05-19] MEDS: ESCITALOPRAM OXALATE 20 MG TABLET PO SCH (20:26)
[2023-05-19] MEDS: LITHIUM CARBONATE 600 MG CAPSULE PO SCH (20:26)
[2023-05-19] MEDS: LURASIDONE HCL 80 MG TABLET PO SCH (20:26)
[2023-05-19] MEDS: BENZTROPINE MESYLATE 2 MG TABLET PO SCH (20:26)
[2023-05-19 22:51] VITALS: BP 115/72; PULSE 92; RESP 16; TEMP 97.7; O2SAT 97
[2023-05-20] MEDS: LURASIDONE HCL 40 MG TABLET PO SCH (06:46)
[2023-05-20] MEDS: LamoTRIgine 100 MG TABLET PO SCH ×2 (08:26→20:31)
[2023-05-20] MEDS: CloZAPine 100 MG RAPDIS TABLET PO SCH ×2 (08:26→20:31)
[2023-05-20] MEDS: VALPROIC ACID 250 MG/5 ML SOLUTION UDCUP PO SCH ×2 (08:27→20:31)
[2023-05-20 08:52] LABS: BASOPHILS % (AUTO) 0.5 % (0.0-2.0); HEMATOCRIT 36.9 % (36-46); HEMOGLOBIN 11.8 g/dL (12.0-16.0); LYMPHOCYTES # (AUTO) 2.5 K/uL (1.0-4.8); LYMPHOCYTES % (AUTO) 38.6 % (22.0-44.0); MEAN CORPUSCULAR HEMOGLOBIN 26.7 pg (26.0-34.0); MEAN CORPUSCULAR HGB CONC 32.1 G/dL (31.0-37.0); MEAN CORPUSCULAR VOLUME 83 fL (80-100); MONOCYTES # (AUTO) 0.6 K/uL (0.1-1.0); MONOCYTES % (AUTO) 8.6 % (2.0-9.0); NEUTROPHILS # (AUTO) 3.2 K/uL (1.8-7.7); NEUTROPHILS % (AUTO) 49.3 % (40.0-70.0); PLATELET COUNT (AUTO) 210 K/uL (150-450); RED BLOOD CELL COUNT(AUTO) 4.43 MIL/uL (4.00-5.20); RED CELL DISTRIBUTION WIDTH 17.4 % (11.5-14.5); WHITE BLOOD COUNT (AUTO) 6.4 K/uL (4.5-11.0)
[2023-05-20 10:46] VITALS: BP 106/61; PULSE 84; RESP 18; TEMP 97.7; O2SAT 95
[2023-05-20 20:08] VITALS: BP 113/87; PULSE 89; RESP 18; TEMP 97.8
[2023-05-20] MEDS: LURASIDONE HCL 80 MG TABLET PO SCH (20:31)
[2023-05-20] MEDS: ESCITALOPRAM OXALATE 20 MG TABLET PO SCH (20:31)
[2023-05-20] MEDS: LITHIUM CARBONATE 600 MG CAPSULE PO SCH (20:31)
[2023-05-20] MEDS: BENZTROPINE MESYLATE 2 MG TABLET PO SCH (20:31)
[2023-05-21] MEDS: LURASIDONE HCL 40 MG TABLET PO SCH (06:41)
[2023-05-21] MEDS: CloZAPine 100 MG RAPDIS TABLET PO SCH ×2 (08:28→20:19)
[2023-05-21] MEDS: LamoTRIgine 100 MG TABLET PO SCH ×2 (08:28→20:19)
[2023-05-21 08:29] VITALS: RESP 16
[2023-05-21] MEDS: VALPROIC ACID 250 MG/5 ML SOLUTION UDCUP PO SCH ×2 (08:29→20:20)
[2023-05-21 20:05] VITALS: BP 126/81; PULSE 85; RESP 18; TEMP 97.9; O2SAT 96
[2023-05-21] MEDS: LITHIUM CARBONATE 600 MG CAPSULE PO SCH (20:18)
[2023-05-21] MEDS: BENZTROPINE MESYLATE 2 MG TABLET PO SCH (20:18)
[2023-05-21] MEDS: ESCITALOPRAM OXALATE 20 MG TABLET PO SCH (20:19)
[2023-05-21] MEDS: LURASIDONE HCL 80 MG TABLET PO SCH (20:19)
[2023-05-22 00:10] VITALS: BP 126/81; PULSE 85; RESP 16; TEMP 97.9; O2SAT 97
[2023-05-22] MEDS: LURASIDONE HCL 40 MG TABLET PO SCH (06:42)
[2023-05-22 08:09] VITALS: BP 106/77; PULSE 99; RESP 19; TEMP 97.9; O2SAT 98
[2023-05-22] MEDS: LamoTRIgine 100 MG TABLET PO SCH ×2 (08:24→20:20)
[2023-05-22] MEDS: VALPROIC ACID 250 MG/5 ML SOLUTION UDCUP PO SCH (08:24)
[2023-05-22] MEDS: CloZAPine 100 MG RAPDIS TABLET PO SCH ×2 (08:24→20:20)
[2023-05-22] MEDS: DIVALPROEX SODIUM 500 MG DR TABLET PO SCH (20:20)
[2023-05-22] MEDS: BENZTROPINE MESYLATE 2 MG TABLET PO SCH (20:20)
[2023-05-22] MEDS: LITHIUM CARBONATE 600 MG CAPSULE PO SCH (20:20)
[2023-05-22] MEDS: ESCITALOPRAM OXALATE 20 MG TABLET PO SCH (20:20)
[2023-05-22] MEDS: LURASIDONE HCL 80 MG TABLET PO SCH (20:21)
[2023-05-22 21:40] VITALS: BP 107/58; PULSE 77; RESP 18; TEMP 98.2; O2SAT 97
[2023-05-23] MEDS: LURASIDONE HCL 40 MG TABLET PO SCH (06:33)
[2023-05-23 08:15] VITALS: BP 118/72; PULSE 100; RESP 18; TEMP 98; O2SAT 100
[2023-05-23] MEDS: DIVALPROEX SODIUM 500 MG DR TABLET PO SCH ×2 (08:19→20:00)
[2023-05-23] MEDS: LamoTRIgine 100 MG TABLET PO SCH ×2 (08:19→20:00)
[2023-05-23] MEDS: CloZAPine 100 MG RAPDIS TABLET PO SCH ×2 (08:19→20:01)
[2023-05-23] MEDS: LURASIDONE HCL 80 MG TABLET PO SCH (20:00)
[2023-05-23] MEDS: ESCITALOPRAM OXALATE 20 MG TABLET PO SCH (20:00)
[2023-05-23] MEDS: BENZTROPINE MESYLATE 2 MG TABLET PO SCH (20:01)
[2023-05-23] MEDS: LITHIUM CARBONATE 600 MG CAPSULE PO SCH (20:01)
[2023-05-23 23:40] VITALS: BP 123/67; PULSE 98; RESP 18; TEMP 98; O2SAT 99
[2023-05-24] MEDS: LURASIDONE HCL 40 MG TABLET PO SCH ×2 (06:28→06:45)
[2023-05-24] MEDS: LamoTRIgine 100 MG TABLET PO SCH ×2 (08:24→20:36)
[2023-05-24] MEDS: DIVALPROEX SODIUM 500 MG DR TABLET PO SCH ×2 (08:24→20:35)
[2023-05-24 08:44] VITALS: BP 99/68; PULSE 83; RESP 17; TEMP 97.3; O2SAT 83
[2023-05-24] MEDS: CloZAPine 100 MG RAPDIS TABLET PO SCH ×2 (09:01→20:36)
[2023-05-24] MEDS: LURASIDONE HCL 80 MG TABLET PO SCH (20:35)
[2023-05-24] MEDS: BENZTROPINE MESYLATE 2 MG TABLET PO SCH (20:35)
[2023-05-24] MEDS: LITHIUM CARBONATE 600 MG CAPSULE PO SCH (20:35)
[2023-05-24] MEDS: ESCITALOPRAM OXALATE 20 MG TABLET PO SCH (20:36)
[2023-05-24 21:10] VITALS: BP 112/71; PULSE 93; RESP 16; TEMP 96.4; O2SAT 96
[2023-05-25] MEDS: LURASIDONE HCL 40 MG TABLET PO SCH (06:45)
[2023-05-25] MEDS: CloZAPine 100 MG RAPDIS TABLET PO SCH ×2 (08:26→20:25)
[2023-05-25] MEDS: DIVALPROEX SODIUM 500 MG DR TABLET PO SCH ×2 (08:26→20:25)
[2023-05-25] MEDS: LamoTRIgine 100 MG TABLET PO SCH ×2 (08:26→20:25)
[2023-05-25 08:59] VITALS: BP 110/68; PULSE 98; RESP 18; TEMP 96.9; O2SAT 99
[2023-05-25] MEDS: HALOPERIDOL 5 MG TABLET PO PRN (14:58)
[2023-05-25] MEDS: LURASIDONE HCL 80 MG TABLET PO SCH (20:25)
[2023-05-25] MEDS: LITHIUM CARBONATE 600 MG CAPSULE PO SCH (20:25)
[2023-05-25] MEDS: BENZTROPINE MESYLATE 2 MG TABLET PO SCH (20:25)
[2023-05-25] MEDS: ESCITALOPRAM OXALATE 20 MG TABLET PO SCH (20:25)
[2023-05-25 23:17] VITALS: RESP 18
[2023-05-26] MEDS: LURASIDONE HCL 40 MG TABLET PO SCH (06:36)
[2023-05-26] MEDS: LamoTRIgine 100 MG TABLET PO SCH ×2 (08:07→20:06)
[2023-05-26] MEDS: CloZAPine 100 MG RAPDIS TABLET PO SCH ×2 (08:07→20:06)
[2023-05-26] MEDS: DIVALPROEX SODIUM 500 MG DR TABLET PO SCH ×2 (08:07→20:06)
[2023-05-26 08:14] VITALS: BP 114/78; PULSE 84; RESP 16; TEMP 97.8; O2SAT 96
[2023-05-26] MEDS: BENZTROPINE MESYLATE 2 MG TABLET PO SCH (20:06)
[2023-05-26] MEDS: LURASIDONE HCL 80 MG TABLET PO SCH (20:06)
[2023-05-26] MEDS: ESCITALOPRAM OXALATE 20 MG TABLET PO SCH (20:06)
[2023-05-26] MEDS: LITHIUM CARBONATE 600 MG CAPSULE PO SCH (20:06)
[2023-05-26 20:31] VITALS: BP 99/64; PULSE 90; RESP 18; TEMP 98; O2SAT 98
[2023-05-27] MEDS: LURASIDONE HCL 40 MG TABLET PO SCH (06:34)
[2023-05-27] MEDS: DIVALPROEX SODIUM 500 MG DR TABLET PO SCH ×2 (08:13→20:59)
[2023-05-27] MEDS: CloZAPine 100 MG RAPDIS TABLET PO SCH ×2 (08:13→20:59)
[2023-05-27] MEDS: LamoTRIgine 100 MG TABLET PO SCH ×2 (08:13→21:11)
[2023-05-27 08:18] VITALS: RESP 16
[2023-05-27 20:15] VITALS: BP 111/75; PULSE 94; RESP 17; TEMP 98.3; O2SAT 98
[2023-05-27] MEDS: ESCITALOPRAM OXALATE 20 MG TABLET PO SCH (20:59)
[2023-05-27] MEDS: LITHIUM CARBONATE 600 MG CAPSULE PO SCH (21:00)
[2023-05-27] MEDS: BENZTROPINE MESYLATE 2 MG TABLET PO SCH (21:00)
[2023-05-27] MEDS: LURASIDONE HCL 80 MG TABLET PO SCH (21:11)
[2023-05-28] MEDS: LURASIDONE HCL 40 MG TABLET PO SCH (06:00)
[2023-05-28] MEDS: LamoTRIgine 100 MG TABLET PO SCH ×2 (08:02→20:10)
[2023-05-28] MEDS: DIVALPROEX SODIUM 500 MG DR TABLET PO SCH ×2 (08:02→20:10)
[2023-05-28] MEDS: CloZAPine 100 MG RAPDIS TABLET PO SCH ×2 (08:02→20:10)
[2023-05-28 08:21] VITALS: BP 110/64; PULSE 78; RESP 16; TEMP 97.6; O2SAT 98
[2023-05-28 08:55] LABS: BASOPHILS % (AUTO) 0.4 % (0.0-2.0); HEMATOCRIT 35.1 % (36-46); HEMOGLOBIN 11.4 g/dL (12.0-16.0); LYMPHOCYTES # (AUTO) 2.9 K/uL (1.0-4.8); MEAN CORPUSCULAR HEMOGLOBIN 27.1 pg (26.0-34.0); MEAN CORPUSCULAR HGB CONC 32.6 G/dL (31.0-37.0); MEAN CORPUSCULAR VOLUME 83 fL (80-100); MONOCYTES # (AUTO) 0.8 K/uL (0.1-1.0); MONOCYTES % (AUTO) 10.2 % (2.0-9.0); NEUTROPHILS # (AUTO) 4.3 K/uL (1.8-7.7); NEUTROPHILS % (AUTO) 51.4 % (40.0-70.0); PLATELET COUNT (AUTO) 230 K/uL (150-450); RED BLOOD CELL COUNT(AUTO) 4.22 MIL/uL (4.00-5.20); RED CELL DISTRIBUTION WIDTH 18.1 % (11.5-14.5); WHITE BLOOD COUNT (AUTO) 8.3 K/uL (4.5-11.0)
[2023-05-28 20:09] VITALS: BP 109/72; PULSE 90; RESP 18; TEMP 97.9; O2SAT 97
[2023-05-28] MEDS: ZOLPIDEM TARTRATE 10 MG TABLET PO PRN (20:10)
[2023-05-28] MEDS: LITHIUM CARBONATE 600 MG CAPSULE PO SCH (20:10)
[2023-05-28] MEDS: LURASIDONE HCL 80 MG TABLET PO SCH (20:10)
[2023-05-28] MEDS: ESCITALOPRAM OXALATE 20 MG TABLET PO SCH (20:10)
[2023-05-28] MEDS: BENZTROPINE MESYLATE 2 MG TABLET PO SCH (20:10)
[2023-05-28 21:45] VITALS: BP 99/68; PULSE 62; RESP 18; TEMP 97.9; O2SAT 96
[2023-05-28 21:59] VITALS: BP 102/70; PULSE 65; RESP 18; TEMP 97.9; O2SAT 96
[2023-05-29] MEDS: LURASIDONE HCL 40 MG TABLET PO SCH (06:04)
[2023-05-29] MEDS: HALOPERIDOL 5 MG TABLET PO PRN (08:09)
[2023-05-29] MEDS: CloZAPine 100 MG RAPDIS TABLET PO SCH (08:09)
[2023-05-29] MEDS: DIVALPROEX SODIUM 500 MG DR TABLET PO SCH (08:09)
[2023-05-29] MEDS: LamoTRIgine 100 MG TABLET PO SCH (08:09)
[2023-05-29 08:13] VITALS: BP 118/66; PULSE 100; RESP 16; TEMP 97.6; O2SAT 97
[2023-05-29] MEDS ORDERED: CLOZ100T37 PO ×2 (12:19→16:23)
[2023-05-29] MEDS ORDERED: DIVA-112 PO ×2 (12:19→16:23)
[2023-05-29] MEDS ORDERED: LAMO-24 PO (16:23)
[2023-05-29] MEDS ORDERED: BENZ2TAB71 PO (16:23)
[2023-05-29] MEDS ORDERED: LURA40TA4 PO (16:23)
[2023-05-29] MEDS ORDERED: ESCI20TA87 PO (16:23)
[2023-05-29] MEDS ORDERED: LURA80TA4 PO (16:23)
== END 2023-05-29 15:10 | disposition home or self-care (01) | DRG 750 ==
LOC: B3A 04-26 00:30
PROVIDERS: ADMIT Psychiatry & Neurology Child & Adolescent Psychiatry; ATTEND Psychiatry & Neurology Child & Adolescent Psychiatry
PROC: GZHZZZZ Group Psychotherapy (ICD-10-PCS; principal; 2023-05-07)
DX: F25.0 Schizoaffective disorder, bipolar type (principal); D64.9 Anemia, unspecified; K21.9 Gastro-esophageal reflux disease without esophagitis; R73.03 Prediabetes; Z20.822 Contact with and (suspected) exposure to COVID-19; E66.9 Obesity, unspecified; Z79.899 Other long term (current) drug therapy; Z68.41 Body mass index [BMI] 40.0-44.9, adult
CPT/HCPCS: 80053; 80164; 82962; 83036; 84436; 84439; 84443; 84702; 85025